=== PATIENT | male | born 1970 | race Caucasian/White ===

== ENCOUNTER 2016-07-18 12:45 | Day surgery (SDC) | payer OTHER ==
[2016-07-13 15:38] VITALS: BMI 33.2
[~2016-07-18 12:45] MED LIST: LACTATED RINGERS 1,000 ML IV SCH; Pre Op ABX Message 1 EACH MISC MISCELLANE ONE
[2016-07-18 13:11] VITALS: TEMP 97.7
[2016-07-18] MEDS ORDERED: LIDOCAINE 1% 20 ML VIAL (10MG/ML) FOR IV START INTRADERMA ONE (13:24)
[2016-07-18 13:27] LABS: Glucose,Whole Blood 124 mg/dL (75-99)
[2016-07-18] MEDS ORDERED: LIDOCAINE 2% SYG (PF) 100 MG/5 ML ONE (14:29)
[2016-07-18] MEDS ORDERED: KETAMINE 10 MG/ML 20 ML VIAL ONE (14:29)
[2016-07-18] MEDS ORDERED: GLYCOPYRROLATE 0.2 MG/ML 2 ML VIAL ONE (14:29)
[2016-07-18] MEDS ORDERED: fentaNYL (PF) 50 MCG/ML 2 ML AMP ONE (14:29)
[2016-07-18] MEDS ORDERED: PROPOFOL 10 MG/ML 20 ML VIAL IV ONE (14:29)
[2016-07-18] MEDS ORDERED: MIDAZOLAM 2 MG/2 ML VIAL ONE (14:29)
[2016-07-18] MEDS ORDERED: LIDOCAINE 2% INJ 20 MG/ML INTRATRACH ONE (15:10)
[2016-07-18] MEDS ORDERED: LACTATED RINGERS 1,000 ML IV ONE (15:14)
--- NOTE | 2016-07-18 15:19 | P.PCN ---
Date of Procedure: 07/18/16 Preoperative Diagnosis: Mediastinal/right hilar mass Postoperative Diagnosis: Same Procedure(s) Performed: Flexible bronchoscopy, transbronchial needle aspirate Anesthesia: MAC Surgeon: Terri Mckeon Institutional Nutrition Consultant #1: Qing Meneses Pathology: other Condition: stable Disposition: same day Operative Findings: This procedure was done under conscious sedation with an ascitic it is being administered by LOGISTICS ENGINEER the bedside. The patient was premedicated with a combination of Versed, ketamine and Diprivan. The patient has obvious features of obstructive sleep apnea and he had evidence of upper airway obstruction and prolonged apneas resulting introduction desaturations. The airway manipulation was done. The chin and the jaw was lifted to secure airway patency. Note that the patient continued to have frequent oxygen desaturations throughout the procedure and he gave me limited amount of time to introduce my bronchoscope and the airway inspection and transbronchial needle aspirate. Nevertheless, we did pulse ox of above 88%. Part of the procedure. No prolonged desaturations were encountered. After achieving adequate oxygenation, the flexible bronchoscope was inserted to the left nostril doesn't list updated. Significant crowding of the posterior oropharynx and subsequently the bronchoscope was moved to the pharynx and larynx and adipose tissue was cc circumferentially going through the upper airway causing dynamic obstruction and apneas. Epiglottis was visualized. The rest of the upper airway structures including the vallecula arytenoids and trouble. Cords and all of them were within normal limits. A total of 2 mL of 1 % lidocaine was applied to the vocal cords and following that the bronchoscope was advanced to the upper trachea. A quick airway inspection was done and the visualized airways include bilateral mainstem bronchi, right upper lobe bronchus , bronchus intermedius, right middle lobe bronchus, right lower lobe bronchus, left upper lobe bronchus, left lower lobe bronchus,segments and subsegments. All of these airway structures were patent although some narrowing of the upper lobe site is clean. In fact the right upper lobe was bifurcating and a taken in the posterior segment was originating from the same airway. Anatomically, there was a component of extrinsic compression causing significant narrowing of the airways in the right upper lobe and airway caliber has been reduced by about 50%. The bronchus intermedius was patent. The right middle lobe was visualized. The vent segments of the right lower lobe was also visualized although there was some extrinsic compression in addition. No endobronchial tumor was seen. No active bleeding. No retained blood within the patient's airway. At this point, the bronchoscope was moved to the distal trachea and using a 21-gauge cytology needle chest loculated aspirate of the right paratracheal lymph node was obtained and the total of 4 passes was taken. The adequacy of the samples was confirmed by pathology at the bedside. Total amount of bleeding was less than 5-10 ML's. Bronchoscope was removed and the patient was transferred recovery in stable condition. The patient will be discharged once cleared by anesthesia.
[2016-07-18 16:18] VITALS: BP 120/85; RESP 18
[2016-07-18 16:37] VITALS: PULSE 85
[2016-07-19] MEDS ORDERED: LACTATED RINGERS 1,000 ML IV ONE (05:00)
[2016-07-19] MEDS ORDERED: ALBUTEROL NEB (CONC) 2.5 MG/0.5 ML INHALATION ONE (05:00)
[2016-07-19] MEDS ORDERED: LIDOCAINE 2% (PF) 20 MG/ML 10ML INHALATION ONE (05:00)
--- NOTE | 2016-07-20 12:47 | CDI ---
There is conflicting documentation regarding the sedation used. It appears that General Anesthesia/Unconscious Sedation was used per the Anesthesia Record, but your Procedure Note states "conscious sedation." This is conflicting because these are completely different forms of sedation. If the patient did receive GA/ US, not Conscious Sedation, then please ammend your procedure note to state the correct form of anesthesia used. This is necessary for correct coding and billing. If you don't understand what is needed from you, please contact my manager ambulatory, Stephany Jewell at [phone]. Thank you. LE Lopez
--- NOTE | 2016-08-06 13:06 | CDI ---
There is conflicting documentation regarding the sedation used. It appears that General Anesthesia/Unconscious Sedation was used per the Anesthesia Record, but your Procedure Note states "conscious sedation." This is conflicting because these are completely different forms of sedation. If the patient did receive GA/ US, not Conscious Sedation, then please amend your procedure note to state the correct form of anesthesia used. This is necessary for correct coding and billing. If you don't understand what is needed from you, please contact my manager payroll, Stephany Jewell at [phone]. Thank you. LE Lopez
--- NOTE | 2016-08-17 14:36 | CDI ---
There is conflicting documentation regarding the sedation used. It appears that General Anesthesia/Unconscious Sedation was used per the Anesthesia Record, but your Procedure Note states "conscious sedation." This is conflicting because these are completely different forms of sedation. If the patient did receive GA/ US, not Conscious Sedation, then please ammend your procedure note to state the correct form of anesthesia used. This is necessary for correct coding and billing. If you don't understand what is needed from you, please contact my hospice manager, Stephany Jewell at [phone]. Thank you. ALLY BALLARD
--- NOTE | 2016-09-25 16:09 | P.PN ---
Progress Note - Text The procedure was done under sedation as documented by anesthesia staff. Disregard my conscious sedation comment in the previous procedure note.
== END 2016-07-18 17:20 | disposition home or self-care (01) ==
LOC: ORWHC2ENDO 12:45
PROVIDERS: ATTEND Internal Medicine Critical Care Medicine
DX: C34.90 Malignant neoplasm of unspecified part of unspecified bronchus or lung (principal); R91.8 Other nonspecific abnormal finding of lung field; R04.2 Hemoptysis; J44.9 Chronic obstructive pulmonary disease, unspecified; F17.200 Nicotine dependence, unspecified, uncomplicated; F32.9 Major depressive disorder, single episode, unspecified; I10 Essential (primary) hypertension; E11.9 Type 2 diabetes mellitus without complications; Z79.84 Long term (current) use of oral hypoglycemic drugs; Z79.891 Long term (current) use of opiate analgesic; Z79.899 Other long term (current) drug therapy
CPT/HCPCS: 88305; 88173; 88342; 88341; 31629; J2001 ×3; J2250; J3010; J2704

== ENCOUNTER → 2016-08-02 | Outpatient (CLI) | payer OTHER ==
--- NOTE | 2016-08-02 07:42 | MR ---
PRE AND POSTCONTRAST ENHANCED MRI OF THE BRAIN: CLINICAL HISTORY: Headaches, Hx of small cell lung ca CONTRAST: 20 ML Multihance COMPARISON: None Multiplanar and multispin-echo imaging of the brain was performed both before and after the administr ation of contrast. The ventricles, basal cisterns and sulci overlying the cerebral convexities are within normal limits. There is no evidence for midline shift or mass effect. Acute intracranial hemorrhage or extra-axial collection is not evident. There are no abnormal areas of increased or decreased signal intensity within the brain parenchyma. Following contrast administration, there is no evidence for pathologic enhancement or enhancing mass. There is moderate opacification of the right maxillary sinus with mild opacification of the left maxi llary sinus. There is mucosal thickening of the ethmoid air cells and frontal sinuses. Sphenoid sinus is well aerated as are the mastoid air cells. IMPRESSION: 1. No intracranial abnormality is identified at this time. 2. Moderate chronic sinusitis.
== END | disposition home or self-care (01) ==
LOC: RADMRIMAIN 05:54
PROVIDERS: ATTEND Internal Medicine Hematology & Oncology
DX: C34.90 Malignant neoplasm of unspecified part of unspecified bronchus or lung (principal); R51 Headache; J32.9 Chronic sinusitis, unspecified
CPT/HCPCS: 70553; A9577

== ENCOUNTER → 2016-08-04 | Outpatient (CLI) | payer OTHER ==
--- NOTE | 2016-08-05 10:03 | PE ---
EXAMINATION TYPE: PET CT fusion skull to thigh DATE OF EXAM: 08/04/2016 6:30 PM COMPARISON: Chest x-ray 07/26/2016 Prior PET/CT: None HISTORY: Small cell lung cancer TECHNIQUE: Following the intravenous administration of 12.6 mCi of F-18 FDG, whole body images are p erformed from the skull base to the midthigh. Images are reviewed on the computer in the coronal, ax ial, and sagittal planes. Reconstructed rotating images are created on independent workstation and r eviewed on the computer. A localization and attenuation correction CT is performed in conjunction w ith the PET scan. DLP: 438.54 mGycm SCAN: Initial Blood glucose: 105 mg/dL Average Mediastinum SUV: 1.6 Average Liver SUV: 2.6 FINDINGS: NECK: No abnormal uptake THORAX: There is a small lymph node with intense uptake of 5.4 suspicious for metastatic lesion withi n the pretracheal lymph node. Additional lymph node above the fuentes in the pretracheal space has inc reased uptake of 4.9 compatible with neoplasm. The mass within the right suprahilar region has intens e uptake of 12.3 compatible with neoplasm. Subcarinal lymph node has increased uptake measuring 4.5 c ompatible with neoplasm. ABDOMEN: No abnormal uptake. Contrast is throughout the colon which can be normal. There is uptake wi thin the bilateral renal collecting system. PELVIS: No abnormal uptake OSSEOUS STRUCTURES: No abnormal uptake LOCALIZATION CT: There is opacification of the right maxillary sinus. Enlarged mediastinal lymph node s corresponding to the abnormal areas of uptake are identified. The adrenal glands appear normal. Nor mal appendix is present. Bilateral hip prostheses are present. COMPARISON: Lung mass and lymphadenopathy is better visualized on the localization CT of the chest x- ray. IMPRESSION: 1. Abnormal uptake within the right suprahilar mass with abnormal uptake within the adjacent pretrach eal subcarinal nodes compatible with patient's reported primary lung neoplasm or metastatic lesions.
== END | disposition home or self-care (01) ==
LOC: RADPETMAIN 13:31
PROVIDERS: ATTEND Internal Medicine Hematology & Oncology
DX: C34.90 Malignant neoplasm of unspecified part of unspecified bronchus or lung (principal)
CPT/HCPCS: 78815; A9552

== ENCOUNTER → 2016-09-05 | Outpatient (CLI) | payer OTHER | END | disposition home or self-care (01) | LOC: LABWHC1 15:10 | PROVIDERS: ATTEND Internal Medicine Cardiovascular Disease | DX: R00.1 Bradycardia, unspecified (principal) | CPT/HCPCS: 36415; 84439; 84443 ==

== ENCOUNTER 2016-10-25 14:43 | Observation (INO) | payer OTHER ==
--- NOTE | 2016-10-25 16:58 | P.PN ---
Subjective Principal diagnosis: Chemo induced anemia, neutropenia, weakness Mr. Gonzalez is a very pleasant pt of Dr. Clifford who was sent as a direct admit from our office. He was seen today for routine chemo follow up, he was found to be severely anemia with Hgb 6.5, ANC 341. Pt c/o cough, severe indigestion and diarrhea with poor oral intake for about 3 days, he was tachycardic, BP low normal, normal temp. We tried fluid resuscitation but pt continued to decline, feeling weak and SOB. He was direct admitted, orders written and pt taken over to Oncology unit. spoke with Dr. Mosher and he has accepted as attending. Pt will be seen in AM on consult by Oncology. Malignancy History: Pt was initially seen as a referral from pt PCP Dr. Harrington in June of 2015 for elevated Hgb and ferritin. Work up for myeloproliferative conditions was negative and no other underlying condition as to cause could be identified so polycythemia secondary to smoking was felt to be cuase and pt was to be seen PRN. In July 2016 pt was referred back but now for diagnosis of small cell lung cancer. He was admitted to [facility] with c/ o SOB, CT chest revealed large right hilar mass, multiple bilateral mediastinal lymph nodes and sub-pleural nodules, bronchoscopy with Dr. Mckeon done on revealed small cell lung cancer, MRI brain negative in July and staging PET revealed limited stage disease, pt was started on concurrent chemo and radiation and had done well to this treatment. He has not received GCSF. Objective - Vital Signs Vital signs: Vital Signs Temp 98.1 F 10/25/16 16:35 Pulse 109 H 10/25/16 16:35 Resp 16 10/25/16 16:35 BP 115/75 10/25/16 16:35 Pulse Ox 97 10/25/16 16:35 - Exam Exam was performed in office. Pt was pale, visibly weak and uncomfortable, oral mucosa dry, BBS scattered crackles, tachycardia, abd soft, non-tender, no rebound, mild selling of BLE. Assessment and Plan (1) Dehydration Narrative/Plan: IV fluids ordered Status: Acute (2) Antineoplastic chemotherapy induced pancytopenia Narrative/Plan: STAT 1 unit PRBCs, GCSF ordered, no platelets needed at this time. CBC daily Status: Acute (3) Weakness generalized Narrative/Plan: Secondary to pancytopenia and dehydration, monitor, PT once pt feeling better Status: Acute (4) Small cell lung carcinoma Narrative/Plan: Pt is currently on salvage therapy with cisplatin and etoposide, s/p 4/6 cycles with radiation. Status: Acute Plan: Consult XRT to follow
[2016-10-25] MEDS ORDERED: HYDROcodone/APAP 10-325MG 1 EACH TAB PO PRN (17:07)
[2016-10-25] MEDS ORDERED: ACETAMINOPHEN TAB 325 MG TAB PO PRN (17:07)
[2016-10-25] MEDS ORDERED: ALBUTEROL NEBULIZED 2.5 MG/3 ML INHALATION PRN (17:07)
--- NOTE | 2016-10-25 17:20 | P.HPIM ---
History of Present Illness Patient is a pleasant 46-year-old gentleman with history of lung cancer that was diagnosed recently metastatic disease. Was started on cis-[place] and atopocide. Patient was seen in oncology clinic and was sent in the hospital because of extremely low hemoglobin and blood and for blood transfusion. Patient absolute neutrophil count is 341 patient denied any fever. Patient was complained of cough with whitish sputum production patient was having diarrhea about 2-3 episodes a day. Probably related to mucositis from chemotherapy and C. diff testing be obtained. We'll also get any urea blood cultures. As patient is afebrile probably will not need any antibiotics at this time. Although patient was tachycardic. Review of Systems REVIEW OF SYSTEMS: CONSTITUTIONAL: No fever, no malaise, no fatigue. HEENT: No recent visual problems or hearing problems. Denied any sore throat. CARDIOVASCULAR: No chest pain, orthopnea, PND, no palpitations, no syncope. PULMONARY: No shortness of breath, , no hemoptysis. GASTROINTESTINAL: No diarrhea, no nausea, no vomiting, no abdominal pain. Normoactive bowel sounds. NEUROLOGICAL: No headaches, no weakness, no numbness. HEMATOLOGICAL: Denies any bleeding or petechiae. GENITOURINARY: Denies any burning micturition, frequency, or urgency. MUSCULOSKELETAL/RHEUMATOLOGICAL: Denies any joint pain, swelling, or any muscle pain. ENDOCRINE: Denies any polyuria or polydipsia. The rest of the 14-point review of systems is negative. Past Medical History Past Medical History: Cancer, Diabetes Mellitus, GERD/Reflux, Hypertension, Osteoarthritis (OA), Pneumonia Additional Past Medical History / Comment(s): mass rt side of chest - positive for cancer. completed 6 weeks of radiation tx, next chemo due next week. pt stated "when he eats it feels like food gets stuck going down". History of Any Multi-Drug Resistant Organisms: None Reported Past Surgical History: Joint Replacement Additional Past Surgical History / Comment(s): emily. hip replacement,"power port rt upper chest", bronchosocopy w/bx Past Anesthesia/Blood Transfusion Reactions: Postoperative Nausea & Vomiting ( PONV) Smoking Status: Current every day smoker - Past Family History Mother Family Medical History: Cancer Additional Family Medical History / Comment(s): colon cancer Father Family Medical History: No Reported History Medications and Allergies Home Medications Medication Instructions Recorded Confirmed Type Acetaminophen [Tylenol] 650 mg PO BID PRN 07/13/16 10/25/16 History Albuterol Inhaler [Ventolin Hfa 1 - 2 puff INHALATION RT-Q6H PRN 07/13/16 History Inhaler] HYDROcodone/APAP 10-325MG [[place] 1 tab PO Q4-6H PRN 07/13/16 10/25/16 History 10-325] Lisinopril [Prinivil] 5 mg PO DAILY 07/13/16 10/25/16 History hydrOXYzine PAMOATE 25 mg PO Q4-6H PRN 07/13/16 10/25/16 History metFORMIN HCL [Glucophage] 500 mg PO BID 07/13/16 10/25/16 History Lidocaine Viscous 2% [Xylocaine 10 ml MUCOUS MEM QID 10/25/16 10/25/16 History Viscous] Allergies Allergy/AdvReac Type Severity Reaction Status Date / Time mushroom Allergy Nausea & Verified 07/18/16 13:11 Vomiting Physical Exam Vitals: Vital Signs Temp Pulse Resp BP Pulse Ox 10/25/16 16:35 98.1 F 109 H 16 115/75 97 PHYSICAL EXAMINATION: GENERAL: The patient is alert and oriented x3, not in any acute distress. Well developed, well nourished. HEENT: Pupils are round and equally reacting to light. EOMI. No scleral icterus. conjunctival pallor present. Normocephalic, atraumatic. No pharyngeal erythema. No thyromegaly. CARDIOVASCULAR: S1 and S2 present. No murmurs, rubs, or gallops. PULMONARY: Chest is clear to auscultation, no wheezing or crackles. ABDOMEN: Soft, nontender, nondistended, normoactive bowel sounds. No palpable organomegaly. MUSCULOSKELETAL: No joint swelling or deformity. EXTREMITIES: No cyanosis, clubbing, or pedal edema. NEUROLOGICAL: Gross neurological examination did not reveal any focal deficits. SKIN: No rashes. Assessment and Plan Plan: #1 chemo therapy induced anemia: Since his patient's hemoglobin is less than 7 patient will be transfused 1 unit of blood. 2 severe neutropenia: Chemotherapy induced. Patient doesn't have any fever may not need any antibiotics but will obtain C. diff testing, chest x-ray, UA urinalysis, urine cultures, but cultures. #3 diarrhea probably from mucositis from chemotherapy. 4 type 2 diabetes mellitus: Will use sliding scale insulin for now. 5 hypertension hold off lisinopril because of diarrhea until we have more labs. 6. Nicotine abuse: Counseling was provided #7 small cell lung cancer. Completed for cycle of chemotherapy last week.
[2016-10-25] MEDS ORDERED: INSULIN LISPRO (humaLOG) 300 UNIT/3 ML VIAL SQ SCH (17:30)
[2016-10-25] MEDS: LIDOCAINE VISCOUS 2% 15 ML CUP MUCOUS MEM SCH ×2 (17:56→22:37)
[2016-10-25] MEDS: SODIUM CHLORIDE 0.9% 1,000 ML IV SCH (17:57)
[2016-10-25] MEDS ORDERED: FILGRASTIM-SNDZ 480 MCG/0.8 ML SYRINGE SQ SCH (18:00)
--- NOTE | 2016-10-25 18:08 | XR ---
EXAMINATION TYPE: XR chest 2V DATE OF EXAM: 10/25/2016 COMPARISON: July 26, 2016 chest radiographs HISTORY: Cough TECHNIQUE: Frontal and lateral views of the chest are obtained. FINDINGS: The ill-defined added opacity within the right upper lung zone persists, though less eviden t than the prior study. The right hilar fullness is also redemonstrated, somewhat less perceptible. Remainder of the lung parenchyma clear and well expanded bilaterally. The pleural spaces are negative . Right IJ catheter has been placed since the prior study; it is looped in its cephalad aspect in the s upraclavicular fossa, and the tip of the Port-A-Cath projects over the proximal superior vena cava. The cardiomediastinal mediastinal silhouette is unremarkable, as are the bones and soft tissues. IMPRESSION: 1. RIGHT UPPER LOBE/RIGHT HILAR FINDINGS REDEMONSTRATED. 2. INTERVAL RIGHT IJ PORT CATHETER PLACEMENT DESCRIBED.
[2016-10-25 18:11] LABS: Glucose,Whole Blood 113 mg/dL (75-99)
[2016-10-25] MEDS ORDERED: MAG HYDROX/AL HYDROX/SIMETH 30 ML CUP PO PRN (18:15)
[2016-10-25] MEDS ORDERED: ONDANSETRON 4 MG TAB PO PRN (18:15)
[2016-10-25 18:56] LABS: ALT 24 U/L (21-72); AST 11 U/L (17-59); Alkaline Phosphatase 118 U/L (38-126); Anion Gap 9 mmol/L; Blood Urea Nitrogen 11 mg/dL (9-20); Calcium 9.1 mg/dL (8.4-10.2); Carbon Dioxide 24 mmol/L (22-30); Chloride 107 mmol/L (98-107); Glucose 103 mg/dL (74-99); Magnesium 1.7 mg/dL (1.6-2.3); Non-African American GFR(MDRD) >60 (>60 ml/min/1.73 sqM); Phosphorous 2.6 mg/dL (2.5-4.5); Sodium 140 mmol/L (137-145); Total Bilirubin 0.2 mg/dL (0.2-1.3); Total Protein 5.7 g/dL (6.3-8.2)
[2016-10-25 19:16] LABS: Anisocytosis Slight; CH 31.7; CHCM 35.4; HDW 3.57; Immature Gran Flag Slight; MCH 33.1 pg (25.0-35.0); MCHC 36.9 g/dL (31.0-37.0); MCV 89.8 fL (80.0-100.0); Mean Platelet Volume 7.7; Poikilocytosis Slight; RBC 1.64 m/uL (4.30-5.90); RDW 18.9 % (11.5-15.5); WBC (Perox) 0.76
[2016-10-25 19:32] LABS: HCT 14.7 % (39.0-53.0); HGB 5.4 gm/dL (13.0-17.5); WBC 0.8 k/uL (3.8-10.6)
[2016-10-25] MEDS: BENZOCAINE/MENTHOL LOZENG 1 EACH LOZENGE MUCOUS MEM PRN (19:32)
[2016-10-25 19:57] LABS: Add Differential Manual Differential
[2016-10-25 19:59] LABS: Polychromasia Present
[2016-10-25 20:00] LABS: Manual Review Performed
[2016-10-25 20:22] LABS: Appearance,Urine Clear (Clear); Bilirubin,Urine Negative (Negative); Glucose,Urine (UA) Trace (Negative); Ketones,Urine Negative (Negative); Leukocyte Esterase,Urine Negative (Negative); Nitrite,Urine Negative (Negative); Protein,Urine Trace (Negative); Specific Gravity,Urine 1.015 (1.001-1.035); UA Billing (MACRO vs. MICRO) CHEM; Urobilinogen,Urine <2.0 mg/dL (<2.0)
[2016-10-25 20:23] LABS: Hemoglobin A1C 7.9 % (4.2-6.1)
[2016-10-25 20:55] LABS: Glucose,Whole Blood 173 mg/dL (75-99)
[2016-10-26] MEDS: CEFEPIME 2 GM in SODIUM CHLORIDE 0.9% 50 ML IVPB SCH ×2 (01:26→07:56)
[2016-10-26] MEDS: BENZOCAINE/MENTHOL LOZENG 1 EACH LOZENGE MUCOUS MEM PRN ×3 (01:47→15:14)
[2016-10-26 06:39] LABS: Anisocytosis Slight; Basophils % (A) 0 %; CH 31.5; CHCM 35.1; Eosinophils % (A) 1 %; HCT 22.3 % (39.0-53.0); HDW 3.41; Luc # (Auto) 0.12; Luc % (Auto) 4; Lymphocytes # (A) 0.3 k/uL (1.0-4.8); Lymphocytes % (A) 12 %; MCH 32.5 pg (25.0-35.0); MCHC 36.1 g/dL (31.0-37.0); MCV 90.1 fL (80.0-100.0); Mean Platelet Volume 7.7; Monocytes # (A) 0.3 k/uL (0-1.0); Monocytes % (A) 9 %; Neutrophils # (A) 2.1 k/uL (1.3-7.7); Neutrophils % (A) 74 %; Poikilocytosis Slight; RBC 2.48 m/uL (4.30-5.90); RDW 17.7 % (11.5-15.5); WBC 2.8 k/uL (3.8-10.6); WBC (Perox) 2.79
[2016-10-26 07:05] LABS: HGB 8.1 gm/dL (13.0-17.5)
[2016-10-26 07:14] LABS: Glucose,Whole Blood 102 mg/dL (75-99)
[2016-10-26 07:44] VITALS: BP 134/84; PULSE 107; RESP 16; TEMP 98.6
[2016-10-26] MEDS: LIDOCAINE VISCOUS 2% 15 ML CUP MUCOUS MEM SCH ×2 (07:56→12:21)
[2016-10-26] MEDS: SODIUM CHLORIDE 0.9% 1,000 ML IV SCH ×3 (08:50→12:41)
[2016-10-26] MEDS ORDERED: SODIUM CHLORIDE 0.9% 1,000 ML IV ONE (10:27)
[2016-10-26 11:12] VITALS: BMI 30.1
[2016-10-26 12:05] LABS: Glucose,Whole Blood 107 mg/dL (75-99)
--- NOTE | 2016-10-26 17:33 | P.DS ---
Providers Date of admission: 10/25/16 15:02 Expected date of discharge: 10/26/16 Attending physician: Lexus Mosher Consults: Dr. Sheldon, Oncology Primary care physician: Stated None Dr. Edmond Hospital Course: Final Diagnoses: #1 chemo therapy induced anemia: Since his patient's hemoglobin is less than 7 patient will be transfused 1 unit of blood. 2 severe neutropenia without fevers: Chemotherapy induced. #3 diarrhea probably from mucositis from chemotherapy. 4 type 2 diabetes mellitus 5 hypertension hold off lisinopril because of diarrhea 6. Nicotine abuse #7 small cell lung cancer. Completed for cycle of chemotherapy last week. Hospital course: Patient is a pleasant 46-year-old gentleman with history of lung cancer that was diagnosed recently metastatic disease. Was started on cis- [employer] and etopocide with radiation. Patient was seen in oncology clinic and was sent in the hospital because of extremely low hemoglobin,diarrhea .Tested negative for C. diff.Received blood transfusion and xarxio. Significant clinical improvement. Cleared by oncology for discharge. Patient is being discharged home in a stable condition with guarded prognosis. Microbiology 10/25/16 19:35 Stool Stool for WBCs - Final 10/25/16 19:35 Urine,Clean Catch Urine Culture - Preliminary The impression and plan of care has been dictated as directed as a scribe. : I performed a H&P examination of this patient and discussed the same with the dictator. I agree with the dictator's note. Any additional findings/opinions/ etc. will be noted. Patient Condition at Discharge: Stable Plan - Discharge Summary New Discharge Prescriptions: New INSULIN LISPRO (HumaLOG) [humaLOG] 0 unit SQ ACHS #1 vial Continue HYDROcodone/APAP 10-325MG [[place] 10-325] 1 tab PO Q4-6H PRN PRN Reason: Pain Albuterol Inhaler [Ventolin Hfa Inhaler] 1 - 2 puff INHALATION RT-Q6H PRN PRN Reason: Dyspnea Acetaminophen [Tylenol] 650 mg PO BID PRN PRN Reason: Pain Lidocaine Viscous 2% [Xylocaine Viscous] 10 ml MUCOUS MEM QID Ondansetron [Zofran] 4 mg PO Q4HR PRN PRN Reason: Nausea Mag Hydrox/Al Hydrox/Simeth [Maalox] 30 ml PO DAILY PRN PRN Reason: Constipation Discontinued hydrOXYzine PAMOATE 25 mg PO Q4-6H PRN PRN Reason: Pain Lisinopril [Prinivil] 5 mg PO DAILY Discharge Medication List Acetaminophen [Tylenol] 650 mg PO BID PRN 07/13/16 [History] Albuterol Inhaler [Ventolin Hfa Inhaler] 1 - 2 puff INHALATION RT-Q6H PRN [History] HYDROcodone/APAP 10-325MG [[place] 10-325] 1 tab PO Q4-6H PRN 07/13/16 [History] Lidocaine Viscous 2% [Xylocaine Viscous] 10 ml MUCOUS MEM QID 10/25/16 [History] Mag Hydrox/Al Hydrox/Simeth [Maalox] 30 ml PO DAILY PRN 10/25/16 [History] Ondansetron [Zofran] 4 mg PO Q4HR PRN 10/25/16 [History] INSULIN LISPRO (HumaLOG) [humaLOG] 0 unit SQ ACHS #1 vial 10/26/16 [Rx] Follow up Appointment(s)/Referral(s): Dr. Nichelle PCP [Other] - 3 Days (pt to call for appointment ) [facility], [NON-STAFF] - 1 Week Juan Clifford MD [STAFF PHYSICIAN] - 11/01/16 3:45 pm Ambulatory/Diagnostic Orders: Complete Blood Count w/diff [LAB.AMB] Time Frame: 3 Days, Location: Determined By Patient Patient Instructions/Handouts: Insulin Lispro (By injection), How to Stop Smoking (DC), Neutropenia (DC), Anemia (DC) Activity/Diet/Wound Care/Special Instructions: Hold Metformin, SS ordered. antibx. as per Oncology no smoking Discharge Disposition: HOME SELF-CARE
== END 2016-10-26 16:12 | disposition home health service (06) ==
LOC: 5ONC 15:02 → INTOOBSV 15:02
PROVIDERS: ADMIT Internal Medicine; ATTEND Internal Medicine
PROC: 30240N1 Transfusion of Nonautologous Red Blood Cells into Central Vein, Open Approach (ICD-10-PCS; principal; 2016-10-25)
DX: D61.810 Antineoplastic chemotherapy induced pancytopenia (principal); R19.7 Diarrhea, unspecified; E11.9 Type 2 diabetes mellitus without complications; I10 Essential (primary) hypertension; C34.91 Malignant neoplasm of unspecified part of right bronchus or lung; K12.31 Oral mucositis (ulcerative) due to antineoplastic therapy; E86.0 Dehydration; T45.1X5A Adverse effect of antineoplastic and immunosuppressive drugs, initial encounter; F17.200 Nicotine dependence, unspecified, uncomplicated; K21.9 Gastro-esophageal reflux disease without esophagitis; M19.91 Primary osteoarthritis, unspecified site; Z96.643 Presence of artificial hip joint, bilateral; Z79.84 Long term (current) use of oral hypoglycemic drugs; Z79.899 Other long term (current) drug therapy; Z91.018 Allergy to other foods; Z92.3 Personal history of irradiation
CPT/HCPCS: 96365; 96366; 96372; 94640; 86900; 86901; 80053; 83036; 83735; 84100; 85025 ×2; 86850; 86920; 81003; 87040; 87324; 87086; 87329; 87328; 89055; 71020; G0379; G0378 ×2; P9016; J0692; J1642; Q5101

== ENCOUNTER → 2016-11-09 | Outpatient (CLI) | payer OTHER ==
[~2016-11-09] MED LIST changes: +ALTEPLASE 2 MG VIAL (CATHFLO) IV STA; -LACTATED RINGERS 1,000 ML IV SCH; -Pre Op ABX Message 1 EACH MISC MISCELLANE ONE
[2016-11-09 14:11] LABS: Blood Urea Nitrogen 25 mg/dL (9-20); Non-African American GFR(MDRD) >60 (>60 ml/min/1.73 sqM)
--- NOTE | 2016-11-09 15:10 | CT ---
EXAMINATION TYPE: CT chest w con DATE OF EXAM: 11/09/2016 COMPARISON: Previous study dated 06/15/2016. HISTORY: lung CA CT DLP: 492.9 mGycm Automated exposure control for dose reduction was used. CONTRAST: CT scan of the chest is performed with IV Contrast, patient injected with 100 mL of Omnipaque 300. FINDINGS: There has been a dramatic reduction in the size of the patient's right hilar mass which pre viously measured 6 cm and today measures 3.2 cm. It still encompasses the right upper lobe bronchus. There has been a reduction in the size of the right hilar lymph nodes as well as mediastinal lymph no elba. One pretracheal lymph node previously measured 1.7 cm now measures 1 cm. There is some inflammat ory change in the right lung which May BE secondary to postobstructive pneumonitis. There is a MediPort in place via a right internal jugular approach. Its tip is in the superior vena c ana. There is no pleural or pericardial fluid. The heart is not enlarged. Visualized portions of the upper abdomen are unremarkable. There is hypertrophic spondylosis within the spine. No bony destructive lesion is seen. IMPRESSION: 1. REDUCTION IN SIZE OF THE PATIENT'S RIGHT HILAR MASS AND MEDIASTINAL AND HILAR LYMPH NODES. 2. INFLAMMATORY CHANGES IN THE RIGHT UPPER LOBE MAY REPRESENT RESIDUAL POSTOBSTRUCTIVE PNEUMONITIS. 3. DEGENERATIVE CHANGES WITHIN THE SPINE.
== END | disposition home or self-care (01) ==
LOC: RADPROMAIN 13:05
PROVIDERS: ATTEND Internal Medicine Hematology & Oncology
DX: C34.91 Malignant neoplasm of unspecified part of right bronchus or lung (principal)
CPT/HCPCS: 82565; 84520; 96365; 71260; 36415; Q9967; J2997

== ENCOUNTER 2016-12-06 21:43 | Inpatient (IN) | payer OTHER ==
[2016-12-06] MEDS ORDERED: SODIUM CHLORIDE 0.9% 1,000 ML IV STA (21:59)
[2016-12-06] MEDS ORDERED: IPRATROPIUM-ALBUTEROL 3 ML NEB INHALATION STA (21:59)
--- NOTE | 2016-12-06 21:59 | ED ---
General Adult HPI - General Chief complaint: Shortness of Breath Stated complaint: r lung and back pain Time Seen by Provider: 12/06/16 21:48 Source: patient, EMS, RN notes reviewed, old records reviewed Mode of arrival: EMS Limitations: no limitations - History of Present Illness Initial comments: This is a 46-year-old out of the ER for evaluation. Patient is tearful muscle complaints today. Patient complaining of right-sided chest pain shortness of breath. Patient has recent diagnosis of lung CA. No prior history of heart disease. Denies fever but does complain of increased cough. His had increased cough for a few days now getting progressively worse, medication is not helping. Patient states the pain is located on the right side of his chest about 6 hours prior to arrival and then worsened with shortness of breath. - Related Data Home Medications Medication Instructions Recorded Confirmed Acetaminophen [Tylenol] 650 mg PO TID PRN 07/13/16 12/06/16 Albuterol Inhaler [Ventolin Hfa 1 - 2 puff INHALATION RT-QID PRN 07/13/16 Inhaler] HYDROcodone/APAP 10-325MG [[place] 1 tab PO Q4H PRN 07/13/16 12/06/16 10-325] Codeine Phosphate/Guaifenesin 5 ml PO Q4H PRN 12/06/16 12/06/16 [Virtussin AC Liquid] Pioglitazone [Actos] 15 mg PO QAM 12/06/16 12/06/16 Allergies Allergy/AdvReac Type Severity Reaction Status Date / Time mushroom AdvReac Nausea & Verified 12/06/16 22:32 Vomiting Anesthesia AdvReac Nausea & Uncoded 12/06/16 22:32 Vomiting Review of Systems ROS Statement: Those systems with pertinent positive or pertinent negative responses have been documented in the HPI. ROS Other: All systems not noted in ROS Statement are negative. Past Medical History Past Medical History: Cancer, Diabetes Mellitus, GERD/Reflux, Hypertension, Osteoarthritis (OA), Pneumonia Additional Past Medical History / Comment(s): mass rt side of chest - positive for cancer. completed 6 weeks of radiation tx, and chemo tx. pt stated "when he eats it feels like food gets stuck going down". History of Any Multi-Drug Resistant Organisms: None Reported Past Surgical History: Joint Replacement Additional Past Surgical History / Comment(s): emily. hip replacement,"power port rt upper chest", bronchosocopy w/bx Past Anesthesia/Blood Transfusion Reactions: Postoperative Nausea & Vomiting ( PONV) Past Psychological History: No Psychological Hx Reported Smoking Status: Current every day smoker Past Alcohol Use History: None Reported Past Drug Use History: None Reported - Past Family History Mother Family Medical History: Cancer Additional Family Medical History / Comment(s): colon cancer Father Family Medical History: No Reported History General Exam Limitations: no limitations General appearance: alert, in no apparent distress, anxious Head exam: Present: atraumatic, normocephalic, normal inspection Eye exam: Present: normal appearance, PERRL, EOMI. Absent: scleral icterus, conjunctival injection, periorbital swelling ENT exam: Present: normal exam, mucous membranes moist Neck exam: Present: normal inspection. Absent: tenderness, meningismus, lymphadenopathy Respiratory exam: Present: normal lung sounds bilaterally, wheezes, accessory muscle use. Absent: respiratory distress, rales, rhonchi, stridor Cardiovascular Exam: Present: normal rhythm, tachycardia, normal heart sounds. Absent: systolic murmur, diastolic murmur, rubs, gallop, clicks GI/Abdominal exam: Present: soft, normal bowel sounds. Absent: distended, tenderness, guarding, rebound, rigid Extremities exam: Present: normal inspection, full ROM, normal capillary refill. Absent: tenderness, pedal edema, joint swelling, calf tenderness Back exam: Present: normal inspection Neurological exam: Present: alert, oriented X3, CN II-XII intact Psychiatric exam: Present: normal affect, normal mood Skin exam: Present: warm, dry, intact, normal color. Absent: rash Course Vital Signs 12/06/16 12/06/16 12/06/16 21:48 22:02 22:33 Temperature 99.4 F Pulse Rate 113 H 105 H Respiratory 22 22 Rate Blood Pressure 125/80 O2 Sat by Pulse 96 Oximetry 12/06/16 12/06/16 22:46 23:17 Temperature Pulse Rate 106 H 110 H Respiratory 20 Rate Blood Pressure 135/85 O2 Sat by Pulse 98 Oximetry - Reevaluation(s) Reevaluation #1: 12/06/16 22:43 Mild improvement with breathing treatment, mild pain control with pain medication EKG Findings - EKG Comments: EKG Findings:: EKG shows normal sinus rhythm rate of 97, CO 160, QRS 84, QTC 434 Medical Decision Making - Medical Decision Making 46 LDR fevers or cough congestion shortness of breath. Chest x-ray likely for pneumonia, CT positive for pneumonia, patient will be admitted for IV antibiotics. She mentions cough suppression - Lab Data Result diagrams: 12/06/16 21:52 12/06/16 21:52 Lab Results 12/06/16 12/06/16 12/06/16 Range/Units 21:52 21:52 21:52 WBC 8.1 (3.8-10.6) k/uL RBC 2.65 L (4.30-5.90) m/uL Hgb 8.5 L (13.0-17.5) gm/dL Hct 25.7 L (39.0-53.0) % MCV 96.9 (80.0-100.0) fL MCH 32.2 (25.0-35.0) pg MCHC 33.2 (31.0-37.0) g/dL RDW 18.8 H (11.5-15.5) % Plt Count 60 L D (150-450) k/uL Neutrophils % 81 % Lymphocytes % 10 % Monocytes % 6 % Eosinophils % 1 % Basophils % 1 % Neutrophils # 6.6 (1.3-7.7) k/uL Lymphocytes # 0.8 L (1.0-4.8) k/uL Monocytes # 0.5 (0-1.0) k/uL Eosinophils # 0.1 (0-0.7) k/uL Basophils # 0.1 (0-0.2) k/uL Manual Slide Review Performed Anisocytosis Slight Anisocytosis (manual) Present Macrocytosis Slight Ovalocytes Present PT (9.0-12.0) sec INR (<1.2) APTT (22.0-30.0) sec D-Dimer (<0.60) mg/L FEU Sodium 137 (137-145) mmol/L Potassium 4.0 (3.5-5.1) mmol/L Chloride 104 (98-107) mmol/L Carbon Dioxide 23 (22-30) mmol/L Anion Gap 10 mmol/L BUN 15 (9-20) mg/dL Creatinine 0.89 (0.66-1.25) mg/dL Est GFR (MDRD) Af Amer >60 (>60 ml/min/1.73 sqM) Est GFR (MDRD) Non-Af >60 (>60 ml/min/1.73 sqM) Glucose 127 H (74-99) mg/dL Calcium 8.5 (8.4-10.2) mg/dL Magnesium 0.8 L* (1.6-2.3) mg/dL Total Bilirubin 0.2 (0.2-1.3) mg/dL AST 14 L (17-59) U/L ALT 20 L (21-72) U/L Alkaline Phosphatase 114 (38-126) U/L Total Creatine Kinase 47 L (55-170) U/L CK-MB (CK-2) <0.2 (0.0-2.4) ng/mL CK-MB (CK-2) Rel Index Troponin I <0.012 (0.000-0.034) ng/mL NT-Pro-B Natriuret Pep pg/mL Total Protein 6.2 L (6.3-8.2) g/dL Albumin 3.8 (3.5-5.0) g/dL 12/06/16 12/06/16 Range/Units 21:52 21:52 WBC (3.8-10.6) k/uL RBC (4.30-5.90) m/uL Hgb (13.0-17.5) gm/dL Hct (39.0-53.0) % MCV (80.0-100.0) fL MCH (25.0-35.0) pg MCHC (31.0-37.0) g/dL RDW (11.5-15.5) % Plt Count (150-450) k/uL Neutrophils % % Lymphocytes % % Monocytes % % Eosinophils % % Basophils % % Neutrophils # (1.3-7.7) k/uL Lymphocytes # (1.0-4.8) k/uL Monocytes # (0-1.0) k/uL Eosinophils # (0-0.7) k/uL Basophils # (0-0.2) k/uL Manual Slide Review Anisocytosis Anisocytosis (manual) Macrocytosis Ovalocytes PT 10.3 (9.0-12.0) sec INR 1.0 (<1.2) APTT 23.2 (22.0-30.0) sec D-Dimer 1.73 H (<0.60) mg/L FEU Sodium (137-145) mmol/L Potassium (3.5-5.1) mmol/L Chloride (98-107) mmol/L Carbon Dioxide (22-30) mmol/L Anion Gap mmol/L BUN (9-20) mg/dL Creatinine (0.66-1.25) mg/dL Est GFR (MDRD) Af Amer (>60 ml/min/1.73 sqM) Est GFR (MDRD) Non-Af (>60 ml/min/1.73 sqM) Glucose (74-99) mg/dL Calcium (8.4-10.2) mg/dL Magnesium (1.6-2.3) mg/dL Total Bilirubin (0.2-1.3) mg/dL AST (17-59) U/L ALT (21-72) U/L Alkaline Phosphatase (38-126) U/L Total Creatine Kinase (55-170) U/L CK-MB (CK-2) (0.0-2.4) ng/mL CK-MB (CK-2) Rel Index Troponin I (0.000-0.034) ng/mL NT-Pro-B Natriuret Pep 376 pg/mL Total Protein (6.3-8.2) g/dL Albumin (3.5-5.0) g/dL - Radiology Data Radiology results: report reviewed (Chest x-ray likely for pneumonia, CT chest negative for PE positive for pneumonia), image reviewed Disposition Clinical Impression: Small cell lung carcinoma, Acute exacerbation of chronic obstructive airways disease, Community acquired pneumonia Disposition: ADMITTED IP TO THIS HOSP Condition: Fair Referrals: Katelyn Harrington MD [Primary Care Provider] - 1-2 days
[2016-12-06] MEDS ORDERED: MORPHINE SULFATE 4 MG/ML SYRINGE IVP STA (22:00)
[2016-12-06 22:08] LABS: Anisocytosis Slight; Basophils # (A) 0.1 k/uL (0-0.2); Basophils % (A) 1 %; CHCM 34.1; Eosinophils # (A) 0.1 k/uL (0-0.7); Eosinophils % (A) 1 %; HCT 25.7 % (39.0-53.0); HDW 2.87; HGB 8.5 gm/dL (13.0-17.5); Luc # (Auto) 0.13; Luc % (Auto) 2; Lymphocytes # (A) 0.8 k/uL (1.0-4.8); Lymphocytes % (A) 10 %; MCH 32.2 pg (25.0-35.0); MCHC 33.2 g/dL (31.0-37.0); MCV 96.9 fL (80.0-100.0); Macrocytosis Slight; Monocytes # (A) 0.5 k/uL (0-1.0); Monocytes % (A) 6 %; Neutrophils # (A) 6.6 k/uL (1.3-7.7); Neutrophils % (A) 81 %; RBC 2.65 m/uL (4.30-5.90); RDW 18.8 % (11.5-15.5); WBC 8.1 k/uL (3.8-10.6); WBC (Perox) 7.98
[2016-12-06 22:19] LABS: ALT 20 U/L (21-72); AST 14 U/L (17-59); Alkaline Phosphatase 114 U/L (38-126); Anion Gap 10 mmol/L; Blood Urea Nitrogen 15 mg/dL (9-20); Calcium 8.5 mg/dL (8.4-10.2); Carbon Dioxide 23 mmol/L (22-30); Chloride 104 mmol/L (98-107); Glucose 127 mg/dL (74-99); Non-African American GFR(MDRD) >60 (>60 ml/min/1.73 sqM); Sodium 137 mmol/L (137-145); Total Bilirubin 0.2 mg/dL (0.2-1.3); Total Protein 6.2 g/dL (6.3-8.2)
[2016-12-06 22:23] LABS: Partial Thromboplastin Time 23.2 sec (22.0-30.0); Prothrombin Time 10.3 sec (9.0-12.0)
[2016-12-06 22:26] LABS: Magnesium 0.8 mg/dL (1.6-2.3)
[2016-12-06 22:28] LABS: Creatine Kinase 47 U/L (55-170)
[2016-12-06 22:29] LABS: Manual Review Performed; Ovalocytes Present
--- NOTE | 2016-12-06 22:29 | XR ---
EXAM: XR Chest, 2 Views CLINICAL HISTORY: Reason: difficulty breathing TECHNIQUE: Frontal and lateral views of the chest. COMPARISON: Chest x-ray 10/25/16 FINDINGS: Lungs: Unchanged right upper lung hazy opacity. Pleural space: Unremarkable. No pneumothorax. Heart: Unremarkable. No cardiomegaly. Mediastinum: Unremarkable. Bones/joints: Unremarkable. Tubes, lines and devices: Right-sided Port-A-Cath is in unchanged position. IMPRESSION: Unchanged right upper lung hazy opacity. Correlate for pneumonia. Comparison with any prior cross-sectional imaging would be useful if available.
[2016-12-06] MEDS ORDERED: RX INFO: IV CONTRAST WAS GIVEN 1 EACH MISC MISCELLANE PRN (22:36)
[2016-12-06] MEDS ORDERED: HYDROmorphone 1 MG/ML 1 ML SYRINGE IVP STA (22:40)
[2016-12-06 22:42] LABS: Creatine Kinase MB <0.2 ng/mL (0.0-2.4); Troponin I <0.012 ng/mL (0.000-0.034)
[2016-12-06] MEDS: MAGNESIUM SULFATE-D5W PMX 1 GM in DEXTROSE/WATER 1 100ML.BAG IVPB SCH (23:05)
--- NOTE | 2016-12-06 23:37 | CT ---
EXAM: CT Angiography Chest With Intravenous Contrast CLINICAL HISTORY: Reason: Pain TECHNIQUE: Axial computed tomographic angiography images of the chest with intravenous contrast using pulmonary embolism protocol. Coronal and sagittal reformats were obtained. CTDI is 11.20 mGy and DLP is 466.50 mGy-cm. This CT exam was performed using one or more of the following dose reduction techniques: automated exposure control, adjustment of the mA and/or kV according to patient size, and/or use of iterative reconstruction technique. MIP reconstructed images were created and reviewed. COMPARISON: CT chest, 11/09/16 and chest x-ray 12/06/16 FINDINGS: Pulmonary arteries: Unremarkable. No pulmonary embolism detected. Aorta: No acute findings. No thoracic aortic aneurysm. Lungs: Increased patchy opacities in the right lung, predominantly in the right upper lobe, suspicious for infectious or inflammatory process. Associated bronchial wall thickening, greatest in the right upper lobe. Pleural space: New trace right pleural effusion. No pneumothorax. Heart: Unremarkable. No cardiomegaly. No significant pericardial effusion. Bones/joints: No acute fracture. Lymph nodes: Right hilar soft tissue density, mass versus enlarged lymph node, has slightly decreased, measuring 2.6 cm on series 4, image 75 (previously 3.2 cm). Tubes, lines and devices: New mild fat stranding within the mediastinum, nonspecific. No fluid collection. Right-sided Port-A-Cath is present with tip in the right brachiocephalic vein. IMPRESSION: 1. No evidence of pulmonary embolus. 2. Increased patchy opacities in the right lung, predominantly in the right upper lobe, suspicious for infectious or inflammatory process. 3. New trace right pleural effusion. 4. Right hilar soft tissue density has slightly decreased. Per report, this was previously the site of a right hilar mass, although these images are not available.
[2016-12-06] MEDS ORDERED: SODIUM CHLORIDE 0.9% 1,000 ML IV SCH (23:45)
[2016-12-06] MEDS ORDERED: PNEUMONIA PROTOCOL UTILIZED 1 EACH MISC PO PRN (23:47)
[2016-12-06] MEDS ORDERED: LEVOFLOXACIN 750MG-D5W PMX 750 MG in DEXTROSE/WATER 1 150ML.BAG IVPB STA (23:47)
[2016-12-06] MEDS ORDERED: PIPERACILLIN-TAZOBACTAM 3.375 GM in DEXTROSE/WATER 1 50ML.BAG IVPB STA (23:47)
[2016-12-06] MEDS ORDERED: HYDROmorphone 1 MG/ML 1 ML SYRINGE IVP PRN (23:48)
[2016-12-07] MEDS ORDERED: ACETAMINOPHEN TAB 325 MG TAB PO PRN (01:44)
[2016-12-07] MEDS ORDERED: HYDROmorphone 1 MG/ML 1 ML SYRINGE IVP PRN (01:47)
[2016-12-07] MEDS: guaiFENesin-Coden 100-10MG/5ML 10 ML CUP PO PRN ×3 (03:12→23:37)
[2016-12-07] MEDS: MAGNESIUM SULFATE-D5W PMX 1 GM in DEXTROSE/WATER 1 100ML.BAG IVPB SCH ×6 (03:12→12:42)
[2016-12-07] MEDS: diphenhydrAMINE 25 MG CAP PO PRN ×2 (03:13→23:37)
[2016-12-07] MEDS: IPRATROPIUM-ALBUTEROL 3 ML NEB INHALATION PRN ×5 (04:05→19:13)
[2016-12-07] MEDS ORDERED: GLIMEPIRIDE 1 MG TAB PO SCH (07:30)
--- NOTE | 2016-12-07 07:48 | XR ---
EXAMINATION TYPE: XR chest 2V DATE OF EXAM: 12/07/2016 COMPARISON: 12/06/2016 HISTORY: Chest pain TECHNIQUE: Frontal and lateral views of the chest are obtained. FINDINGS: Hazy density right upper lobe as well as associated pleural thickening remain unchanged. Correlate fo r underlying pneumonia. MediPort catheter in place. No evidence for pneumothorax. No pleural effusion. The cardiac silhouette size is within normal limits. The osseous structures are grossly intact. IMPRESSION: 1. Hazy density right upper lobe as well as associated pleural thickening remain unchanged. Correlat e for underlying pneumonia.
--- NOTE | 2016-12-07 07:55 | P.HPIM ---
History of Present Illness H&P Date: 12/07/16 Chief Complaint: Cough and shortness of breath Patient is a 46 years old with history of small lung cell carcinoma with most recent treatment 3 weeks ago who presents to the emergency room with complaint of shortness of breath and cough Patient relates the cough spells to his radiation, he follows an outpatient with cancer Center and shortness of breath is post excisional and sitting the cough is dry and he has no chest pain In the emergency room his computed tomography scan showed right-sided pneumonia. Review of Systems Constitutional: Patient reports no fever, no chills, no weight changes, no change in appetite Eyes: Patient reports no double vision, no visual changes ENT: Patient reports no rhinorrhea, no post nasal drip, no sore throat Cardiovascular: Patient reports no chest pain, no edema, no palpitations, no syncope, no orthopnea, no paroxysmal nocturnal dyspnea. Respiratory: Patient reports dyspnea, cough dry Gastrointestinal: Patient reports no nausea, no vomiting, no constipation, no diarrhea Genitourinary: Patient reports no dysuria, no urinary frequency, no hematuria. Musculoskeletal: Patient reports no unusual joint pain, no joint swelling or weakness. Patient reports no muscular pain. Psychiatric: Patient reports no changes in mood, no sleeping problems. Patient reports no changes in memory. Endocrine: Patient reports no thirst, no polyuria, no cold intolerance, no heat intolerance. Neurological: Patient reports no unusual paresthesias, no seizures, no paresis , no paralysis, no facila droop, no headache. Heme/Lymphatic: Patient reports no easy bruising, no bleeding tendency, no lymphadenopathy. Allergic/ Immunologic: Patient reports no recent allergic reactions or immunologic history. Skin: Patient reports no rashes or unusual lesions. Past Medical History Past Medical History: Cancer, Diabetes Mellitus, Osteoarthritis (OA), Pneumonia Additional Past Medical History / Comment(s): mass rt side of chest - positive for cancer. completed 6 weeks of radiation tx, and chemo tx. pt stated "when he eats it feels like food gets stuck going down". History of Any Multi-Drug Resistant Organisms: None Reported Past Surgical History: Joint Replacement Additional Past Surgical History / Comment(s): emily. hip replacement,"power port rt upper chest", bronchosocopy w/bx Past Anesthesia/Blood Transfusion Reactions: Postoperative Nausea & Vomiting ( PONV) Past Psychological History: No Psychological Hx Reported Additional Psychological History / Comment(s): pt lives with his girlfriend of 17 years-nima, 1 cat. lives in single story home that has 5 steps to entry.. pt does have cane/walker to use if needed. no home care services. 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 Smoking Status: Current every day smoker Past Alcohol Use History: None Reported Additional Past Alcohol Use History / Comment(s): started smoking age 9 worked up to 1.5 ppd but has cut down-currently smokes 5-6 cigs per day. states he hasnt had a beer in about 5 months Past Drug Use History: None Reported - Past Family History Mother Family Medical History: Cancer Additional Family Medical History / Comment(s): colon cancer Father Family Medical History: No Reported History Medications and Allergies Home Medications Medication Instructions Recorded Confirmed Type Acetaminophen [Tylenol] 650 mg PO TID PRN 07/13/16 12/06/16 History Albuterol Inhaler [Ventolin Hfa 1 - 2 puff INHALATION RT-QID PRN 07/13/16 History Inhaler] HYDROcodone/APAP 10-325MG [[place] 1 tab PO Q4H PRN 07/13/16 12/06/16 History 10-325] Codeine Phosphate/Guaifenesin 5 ml PO Q4H PRN 12/06/16 12/06/16 History [Virtussin AC Liquid] Pioglitazone [Actos] 15 mg PO QAM 12/06/16 12/06/16 History Allergies Allergy/AdvReac Type Severity Reaction Status Date / Time mushroom AdvReac Nausea & Verified 12/06/16 22:32 Vomiting Anesthesia AdvReac Nausea & Uncoded 12/06/16 22:32 Vomiting Physical Exam Vitals: Vital Signs Temp Pulse Pulse Resp BP BP Pulse Ox 12/07/16 04:13 80 12/07/16 04:05 84 12/07/16 02:27 108 H 17 12/07/16 01:25 98.3 F 108 H 17 126/83 97 12/07/16 00:31 98.9 F 110 H 20 139/78 98 12/06/16 23:17 110 H 20 135/85 98 12/06/16 22:46 106 H 12/06/16 22:33 105 H 12/06/16 22:02 22 12/06/16 21:48 99.4 F 113 H 22 125/80 96 Intake and Output 12/06/16 12/07/16 12/07/16 22:59 06:59 14:59 Other: Weight 99.337 kg - Constitutional General appearance: average body habitus, cooperative, disheveled, severe distress - EENT Eyes: PERRLA, no ptosis, no scleral icterus, normal appearance Ears: bilateral: normal - Neck Neck: no lymphadenopathy, normal ROM, no thyromegaly Carotids: bilateral: upstroke normal Thyroid: right: normal size, negative: firm, nodule - Respiratory Respiratory: bilateral: rales, rhonchi, negative: CTA - Cardiovascular Rhythm: regular Heart sounds: normal: S1, S2 Abnormal Heart Sounds: no systolic murmur - Gastrointestinal General gastrointestinal: decreased bowel sounds, no distended, normal bowel sounds, no rigid, soft, tenderness - Integumentary Integumentary: no calor, no cellulitis, no cyanotic, normal, normal turgor - Neurologic Neurologic: CNII-XII intact, focal deficits - Musculoskeletal Musculoskeletal: gait normal, generalized weakness - Psychiatric Psychiatric: A&O x's 3, appropriate affect, intact judgment & insight Results CBC & Chem 7: 12/06/16 21:52 12/06/16 21:52 Labs: Abnormal Lab Results - Last 24 Hours (Table) 12/06/16 12/06/16 12/06/16 Range/Units 21:52 21:52 21:52 RBC 2.65 L (4.30-5.90) m/uL Hgb 8.5 L (13.0-17.5) gm/dL Hct 25.7 L (39.0-53.0) % RDW 18.8 H (11.5-15.5) % Plt Count 60 L D (150-450) k/uL Lymphocytes # 0.8 L (1.0-4.8) k/uL D-Dimer (<0.60) mg/L FEU Glucose 127 H (74-99) mg/dL Magnesium 0.8 L* (1.6-2.3) mg/dL AST 14 L (17-59) U/L ALT 20 L (21-72) U/L Total Creatine Kinase 47 L (55-170) U/L Total Protein 6.2 L (6.3-8.2) g/dL 12/06/16 Range/Units 21:52 RBC (4.30-5.90) m/uL Hgb (13.0-17.5) gm/dL Hct (39.0-53.0) % RDW (11.5-15.5) % Plt Count (150-450) k/uL Lymphocytes # (1.0-4.8) k/uL D-Dimer 1.73 H (<0.60) mg/L FEU Glucose (74-99) mg/dL Magnesium (1.6-2.3) mg/dL AST (17-59) U/L ALT (21-72) U/L Total Creatine Kinase (55-170) U/L Total Protein (6.3-8.2) g/dL Thrombosis Risk Factor Assmnt - Choose All That Apply Each Factor Represents 1 point: Age 41-60 years, Serious lung disease incl. pneumonia (< 1month) Other congenital or acquired thrombophilia - If yes, enter type in comment: No Thrombosis Risk Factor Assessment Total Risk Factor Score: 2 Thrombosis Risk Factor Assessment Level: Low Risk Assessment and Plan (1) Community acquired pneumonia Narrative/Plan: This could be related to his radiation therapy as well, however is at risk of infection so we cannot rule out gout is acquired pneumonia Will treat his antibiotics broad spectrum in view of his [immunological status and chemotherapy, I'll order oxygen will control his cough Is not neutropenic and does not require ICU admission but he certainly needs to be closely monitored and started him on DVT prophylaxis and GI prophylaxis] Status: Acute (2) Small cell lung carcinoma Narrative/Plan: This been treated as an outpatient with the cancer Center we will obtain oncology and definitive treatment to them Status: Acute (3) Antineoplastic chemotherapy induced pancytopenia Narrative/Plan: He has history of pancytopenia which currently in improved associated is not neutropenic and his hemoglobin is stable we will continue to monitor his CBC on daily basis Status: Acute (4) COPD mixed type Narrative/Plan: I doubt exacerbation at this point as patient is not wheezing has no rhonchi his lung is clear otherwise except at the site of pneumonitis We'll continue his albuterrol, I will provide oxygen I did financial services counselor him regarding nicotine cessation. Status: Chronic (5) Nicotine addiction Narrative/Plan: I did provide extensive smoking cessation and offered patch Status: Acute Time with Patient: Greater than 30
[2016-12-07] MEDS ORDERED: BENZONATATE 100 MG CAP PO PRN (09:00)
[2016-12-07] MEDS: PIPERACILLIN-TAZOBACTAM 3.375 GM in DEXTROSE/WATER 1 50ML.BAG IVPB SCH ×2 (09:33→16:14)
[2016-12-07 09:44] LABS: Magnesium 1.9 mg/dL (1.6-2.3); Phosphorous 3.7 mg/dL (2.5-4.5)
--- NOTE | 2016-12-07 12:15 | P.CNPUL ---
History of Present Illness Consult date: 12/07/16 Reason for consult: dyspnea, cough, chest pain, pneumonia Chief complaint: Shortness of breath and chest discomfort History of present illness: Consult dated 12/07/2016 46-year-old male who was recently diagnosed by my partner using a transbronchial needle aspiration technique, was diagnosed with small cell lung cancer. She's about 6 months ago. The patient unfortunately continues to smoke. States he only smokes a couple cigarettes a day. The patient has undergone chemo and radiation therapy. His medical oncologist is Dr. Clifford in his radiation doctor is Dr. Nadeem Santoro. The patient comes in with complaints of shortness of breath. Coughing up some phlegm. Also pain in the right chest area. No fever. No nausea vomiting or diarrhea. The patient feels a bit better today. The #1 thing is really affecting him now is his cough. He has not been in back into the office to see my partner. Review of Systems A 12 point review of system is positive for shortness of breath cough right- sided chest pain and minimal phlegm production. Past Medical History Past Medical History: Cancer, Diabetes Mellitus, Osteoarthritis (OA), Pneumonia Additional Past Medical History / Comment(s): mass rt side of chest - positive for cancer. completed 6 weeks of radiation tx, and chemo tx. pt stated "when he eats it feels like food gets stuck going down". History of Any Multi-Drug Resistant Organisms: None Reported Past Surgical History: Joint Replacement Additional Past Surgical History / Comment(s): emily. hip replacement,"power port rt upper chest", bronchosocopy w/bx Past Anesthesia/Blood Transfusion Reactions: Postoperative Nausea & Vomiting ( PONV) Past Psychological History: No Psychological Hx Reported Additional Psychological History / Comment(s): pt lives with his girlfriend of 17 years-nima, 1 cat. lives in single story home that has 5 steps to entry.. pt does have cane/walker to use if needed. no home care services. 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 Smoking Status: Current every day smoker Past Alcohol Use History: None Reported Additional Past Alcohol Use History / Comment(s): started smoking age 9 worked up to 1.5 ppd but has cut down-currently smokes 5-6 cigs per day. states he hasnt had a beer in about 5 months Past Drug Use History: None Reported - Past Family History Mother Family Medical History: Cancer Additional Family Medical History / Comment(s): colon cancer Father Family Medical History: No Reported History Medications and Allergies Home Medications Medication Instructions Recorded Confirmed Type Acetaminophen [Tylenol] 650 mg PO TID PRN 07/13/16 12/06/16 History Albuterol Inhaler [Ventolin Hfa 1 - 2 puff INHALATION RT-QID PRN 07/13/16 History Inhaler] HYDROcodone/APAP 10-325MG [[place] 1 tab PO Q4H PRN 07/13/16 12/06/16 History 10-325] Codeine Phosphate/Guaifenesin 5 ml PO Q4H PRN 12/06/16 12/06/16 History [Virtussin AC Liquid] Pioglitazone [Actos] 15 mg PO QAM 12/06/16 12/06/16 History Allergies Allergy/AdvReac Type Severity Reaction Status Date / Time mushroom AdvReac Nausea & Verified 12/06/16 22:32 Vomiting Anesthesia AdvReac Nausea & Uncoded 12/06/16 22:32 Vomiting Physical Exam Osteopathic Statement: *. No significant issues noted on an osteopathic structural exam other than those noted in the History and Physical/Consult. Vitals: Vital Signs Temp Pulse Pulse Resp BP BP Pulse Ox 12/07/16 11:35 80 12/07/16 11:25 78 12/07/16 10:51 94 12/07/16 07:43 76 12/07/16 07:32 72 12/07/16 07:00 98.1 F 94 28 H 121/74 97 12/07/16 04:13 80 12/07/16 04:05 84 12/07/16 02:27 108 H 17 12/07/16 01:25 98.3 F 108 H 17 126/83 97 12/07/16 00:31 98.9 F 110 H 20 139/78 98 12/06/16 23:17 110 H 20 135/85 98 12/06/16 22:46 106 H 12/06/16 22:33 105 H 12/06/16 22:02 22 12/06/16 21:48 99.4 F 113 H 22 125/80 96 Intake and Output 12/06/16 12/07/16 12/07/16 22:59 06:59 14:59 Intake Total 1100 Balance 1100 Intake: Intake, IV Titration 1100 Amount Levofloxacin 750Mg-D5w 150 Pmx 750 mg In Dextrose/ Water 1 150ml.bag @ 100 mls/hr IVPB HS MIR Rx#: [id number] Magnesium Sulfate-D5w Pmx 100 1 gm In Dextrose/Water 1 100ml.bag @ 100 mls/hr IVPB Q1H [facility] Rx#: [id number] Piperacillin-Tazobactam 3 50 .375 gm In Dextrose/Water 1 50ml.bag @ 12.5 mls/hr IVPB Q8HR MIR Rx#: [id number] Sodium Chloride 0.9% 1, 800 000 ml @ 100 mls/hr IV . Q10H MIR Rx#:[id number] Other: Voiding Method Toilet Weight 99.337 kg No acute distress, no respiratory distress. He did not cough one time when I was in the room. HEENT examination reveals it to be relatively normal. He is alopecia from his chemotherapy. Mucous membranes are moist. No oral lesions. Neck supple full range of motion no adenopathy or thyromegaly. Cardiovascular examination reveals regular rhythm rate. S1-S2 normal. Lungs reveal some inspiratory and expiratory wheezes and rhonchi. Breath sounds are diminished. Slight prolongation on forced maneuver. Abdomen soft bowel sounds are heard. Extremities are intact. No cyanosis clubbing or edema. Skin without rash. Neurologic examination is nonfocal. Results - Laboratory Findings CBC and BMP: 12/06/16 21:52 12/06/16 21:52 PT/INR, D-dimer PT 10.3 sec (9.0-12.0) 12/06/16 21:52 INR 1.0 (<1.2) 12/06/16 21:52 D-Dimer 1.73 mg/L FEU (<0.60) H 12/06/16 21:52 Abnormal lab findings: Abnormal Labs 12/06/16 12/06/16 12/06/16 21:52 21:52 21:52 RBC 2.65 L Hgb 8.5 L Hct 25.7 L RDW 18.8 H Plt Count 60 L D Lymphocytes # 0.8 L D-Dimer Glucose 127 H Magnesium 0.8 L* AST 14 L ALT 20 L Total Creatine Kinase 47 L Total Protein 6.2 L 12/06/16 21:52 RBC Hgb Hct RDW Plt Count Lymphocytes # D-Dimer 1.73 H Glucose Magnesium AST ALT Total Creatine Kinase Total Protein - Diagnostic Findings Chest x-ray: image reviewed CT scan - chest: image reviewed (The patient's labs x-rays a medications are all reviewed.) Assessment and Plan (1) Acute exacerbation of chronic obstructive airways disease Status: Acute (2) Community acquired pneumonia Status: Acute (3) Nicotine addiction Status: Acute (4) Small cell lung carcinoma Status: Acute (5) Antineoplastic chemotherapy induced pancytopenia Status: Acute (6) Dehydration Status: Acute (7) Hilar mass Status: Acute Plan: Plan dated 12/07/2016 The patient's chest x-ray and CAT scan suggested possibility of pneumonia in the right upper lobe. His right hilar mass is decreased in size consistent with the fact that he received radiation and chemo for small cell lung cancer. This lung cancer is very responsive to chemotherapy. The patient will have antibiotics updrafts corticosteroids. We will evaluate his current med list. Additional recommendations suggestions are forthcoming. Prognosis is guarded. No discharge recommendations are made. Time with Patient: Greater than 30
[2016-12-07] MEDS: ENOXAPARIN 40 MG/0.4 ML SYRINGE SQ SCH (13:08)
[2016-12-07] MEDS: BENZOCAINE/MENTHOL LOZENG 1 EACH LOZENGE MUCOUS MEM PRN ×4 (13:10→23:38)
[2016-12-07] MEDS: HYDROcodone/APAP 10-325MG 1 EACH TAB PO PRN ×3 (13:16→23:37)
--- NOTE | 2016-12-07 15:59 | P.PN ---
Subjective Principal diagnosis: shortness of breath Patient is a 46-year-old male with past medical history of small cell lung cancer status post chemo and radiation therapy with optimal results, echo abuse, and diabetes mellitus type 2 presented with shortness of breath. In the ER he was subsequently diagnosed with pneumonia and exacerbation of COPD. He was started on antibiotics, bronchodilators, and steroids. Pulmonary was consultation and agreed with current plan of care. He is also found to have severe hypomagnesemia and dehydration. Patient seen and examined at bedside. He reports that shortness of breath is much improved from yesterday. He continues to struggle with cough but has not requested to his as needed cough medications. He is requesting something for a sore throat. He denies any nausea, vomiting, or diarrhea. Objective - Vital Signs Vital signs: Vital Signs Temp 98.1 F 12/07/16 07:00 Pulse 80 12/07/16 11:35 Resp 28 H 12/07/16 07:00 BP 121/74 12/07/16 07:00 Pulse Ox 97 12/07/16 07:00 Intake & Output 12/06/16 12/07/16 12/07/16 18:59 06:59 18:59 Intake Total 1100 Balance 1100 Weight 99.337 kg Intake: Intake, IV Titration 1100 Amount Levofloxacin 750Mg-D5w 150 Pmx 750 mg In Dextrose/ Water 1 150ml.bag @ 100 mls/hr IVPB HS MIR Rx#: [id number] Magnesium Sulfate-D5w Pmx 100 1 gm In Dextrose/Water 1 100ml.bag @ 100 mls/hr IVPB Q1H [facility]IR Rx#: [id number] Piperacillin-Tazobactam 3 50 .375 gm In Dextrose/Water 1 50ml.bag @ 12.5 mls/hr IVPB Q8HR MIR Rx#: [id number] Sodium Chloride 0.9% 1, 800 000 ml @ 100 mls/hr IV . Q10H MIR Rx#:[id number] Other: Voiding Method Toilet - Exam General: non toxic, mild distress, appears at stated age Derm: no rashes, no lesions Head: atraumatic, normocephalic, symmetric Eyes: EOMI, no lid lag, anicteric sclera ENT: no post nasal drip, no thrush Mouth: no lip lesion, mucus membranes dry Cardiovascular: S1S2 reg, no murmur, positive posterior tibial pulse bilateral, Lungs: wheezing bilateral bases, no rhonchi, no rales , no accessory muscle use Abdominal: soft, nontender to palpation, no guarding, no appreciable organomegaly Ext: no gross muscle atrophy, no edema, no contractures Neuro: CN II-XI grossly intact, no focal neuro deficits Psych: Alert, oriented, appropriate affect - Labs CBC & Chem 7: 12/06/16 21:52 12/06/16 21:52 Labs: Abnormal Lab Results - Last 24 Hours (Table) 12/06/16 12/06/16 12/06/16 Range/Units 21:52 21:52 21:52 RBC 2.65 L (4.30-5.90) m/uL Hgb 8.5 L (13.0-17.5) gm/dL Hct 25.7 L (39.0-53.0) % RDW 18.8 H (11.5-15.5) % Plt Count 60 L D (150-450) k/uL Lymphocytes # 0.8 L (1.0-4.8) k/uL D-Dimer (<0.60) mg/L FEU Glucose 127 H (74-99) mg/dL Magnesium 0.8 L* (1.6-2.3) mg/dL AST 14 L (17-59) U/L ALT 20 L (21-72) U/L Total Creatine Kinase 47 L (55-170) U/L Total Protein 6.2 L (6.3-8.2) g/dL 12/06/16 Range/Units 21:52 RBC (4.30-5.90) m/uL Hgb (13.0-17.5) gm/dL Hct (39.0-53.0) % RDW (11.5-15.5) % Plt Count (150-450) k/uL Lymphocytes # (1.0-4.8) k/uL D-Dimer 1.73 H (<0.60) mg/L FEU Glucose (74-99) mg/dL Magnesium (1.6-2.3) mg/dL AST (17-59) U/L ALT (21-72) U/L Total Creatine Kinase (55-170) U/L Total Protein (6.3-8.2) g/dL Assessment and Plan Plan: right-sided pneumonia, healthcare acquired, possible [id number], Levaquin, follow chest x-ray clear, bronchodilators, pulmonary recommendations appreciated acute exacerbation of COPD-steroids, bronchodilators, pulmonary hygiene, antibiotic, pulmonary recommendations appreciated Small cell lung cancer-good response to chemotherapy, maintain outpatient follow -up with Dr. Clifford Prior tobacco abuse- continue cessation Diabetes mellitus type 2-hold Amaryl, start sliding scale insulin with steroid use, check hemoglobin A1c hypomagnesemia-replace, recheck in a.m. anemia, appears at baseline after chemo-will check iron studies, follow CBC DVT prophylaxis: lovenox Discussed with: patient, nursing by phone Anticipated discharge: 24-[address]: home A total of 45 minutes was spent on the care of this complex patient more than 50 % of the time was spent in counseling and care coordination.
[2016-12-07 17:43] LABS: Glucose,Whole Blood 133 mg/dL (75-99)
[2016-12-07] MEDS: INSULIN LISPRO (humaLOG) 300 UNIT/3 ML VIAL SQ SCH ×2 (17:52→21:29)
[2016-12-07] MEDS: methylPREDNISolone SOD SUCCI 125 MG/2 ML VIAL IV SCH ×2 (18:30→23:36)
[2016-12-07] MEDS: SYMBICORT 160-4.5 MCG INHALER INHALATION SCH (19:13)
--- NOTE | 2016-12-07 19:14 | P.CONS ---
History of Present Illness - Reason for Consult Consult date: 12/07/16 Lung Infiltrate. Small cell lung cancer - History of Present Illness The patient is a 46-year-old gentleman, known to our service. 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 He then presented in 07/30, with a right hilar lung mass, with bronchoscopy positive for small cell lung cancer. PET scan revealed mediastinal involvement, but no evidence of distant disease. The patient was started on concurrent chemoradiation, with [employer] HELPER-16 and cisplatin use as a chemo arm. He completed the concurrent phase of treatment in late 09/29. He completed his sixth and last cycle of chemotherapy about 2 weeks ago. The patient states that since completing radiation, he has had a chronic cough , that did improve post radiation, but persisted. This was associated with production of whitish phlegm. Over the last 2-3 days, he states that the cough got much worse. He actually had a couple of episodes of vomiting because of the cough. In addition over the last 2 days, he developed progressive shortness of breath. He therefore came into the emergency room, where chest x- ray showed right upper lobe opacities. He had a CTA, that was negative for pulmonary embolus. This was compared to the previous computed tomography scan done on 10/29. The right hilar mass was noted to have decreased further. However new infiltrate was noted in the right upper lobe. He was therefore admitted further management. The patient has been started on antibiotics, steroids, as well as breathing treatments. He has noted a slight improvement. The consult was placed for further evaluation, given new infiltrate with his history of cancer and chemoradiation Review of Systems Constitutional: Reports weakness Eyes: denies blurred vision, denies pain Ears: deny: decreased hearing, ear discharge, earache, tinnitus Ears, nose, mouth and throat: Denies headache, Denies sore throat Cardiovascular: Reports decreased exercise tolerance Respiratory: Reports congestion, Reports cough with sputum, Reports dyspnea, Reports pain on inspiration Gastrointestinal: Reports nausea, Reports vomiting, Denies abdominal pain, Denies diarrhea Genitourinary: Reports as per HPI (No specific complaints) Musculoskeletal: Denies myalgias Integumentary: Denies pruritus, Denies rash Neurological: Reports weakness, Denies numbness Psychiatric: Denies anxiety, Denies depression Endocrine: Denies fatigue, Denies weight change Hematologic/Lymphatic: Reports as per HPI Past Medical History Past Medical History: Cancer, Diabetes Mellitus, Osteoarthritis (OA), Pneumonia Additional Past Medical History / Comment(s): mass rt side of chest - positive for cancer. completed 6 weeks of radiation tx, and chemo tx. pt stated "when he eats it feels like food gets stuck going down". History of Any Multi-Drug Resistant Organisms: None Reported Past Surgical History: Joint Replacement Additional Past Surgical History / Comment(s): emily. hip replacement,"power port rt upper chest", bronchosocopy w/bx Past Anesthesia/Blood Transfusion Reactions: Postoperative Nausea & Vomiting ( PONV) Past Psychological History: No Psychological Hx Reported Additional Psychological History / Comment(s): pt lives with his girlfriend of 17 years-nima, 1 cat. lives in single story home that has 5 steps to entry.. pt does have cane/walker to use if needed. no home care services. 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 Smoking Status: Current every day smoker Past Alcohol Use History: None Reported Additional Past Alcohol Use History / Comment(s): started smoking age 9 worked up to 1.5 ppd but has cut down-currently smokes 5-6 cigs per day. states he hasnt had a beer in about 5 months Past Drug Use History: None Reported - Past Family History Mother Family Medical History: Cancer Additional Family Medical History / Comment(s): colon cancer Father Family Medical History: No Reported History Medications and Allergies Home Medications Medication Instructions Recorded Confirmed Type Acetaminophen [Tylenol] 650 mg PO TID PRN 07/13/16 12/06/16 History Albuterol Inhaler [Ventolin Hfa 1 - 2 puff INHALATION RT-QID PRN 07/13/16 History Inhaler] HYDROcodone/APAP 10-325MG [[place] 1 tab PO Q4H PRN 07/13/16 12/06/16 History 10-325] Codeine Phosphate/Guaifenesin 5 ml PO Q4H PRN 12/06/16 12/06/16 History [Virtussin AC Liquid] Pioglitazone [Actos] 15 mg PO QAM 12/06/16 12/06/16 History Allergies Allergy/AdvReac Type Severity Reaction Status Date / Time mushroom AdvReac Nausea & Verified 12/06/16 22:32 Vomiting Anesthesia AdvReac Nausea & Uncoded 12/06/16 22:32 Vomiting Physical Exam Vitals: Vital Signs Temp Pulse Pulse Resp BP BP Pulse Ox 12/07/16 16:31 94 12/07/16 16:22 80 94 L 12/07/16 16:08 98.6 F 102 H 18 123/65 95 12/07/16 15:43 102 H 12/07/16 11:35 80 12/07/16 11:25 78 12/07/16 10:51 94 12/07/16 07:43 76 12/07/16 07:32 72 12/07/16 07:00 98.1 F 94 28 H 121/74 97 12/07/16 04:13 80 12/07/16 04:05 84 12/07/16 02:27 108 H 17 12/07/16 01:25 98.3 F 108 H 17 126/83 97 12/07/16 00:31 98.9 F 110 H 20 139/78 98 12/06/16 23:17 110 H 20 135/85 98 12/06/16 22:46 106 H 12/06/16 22:33 105 H 12/06/16 22:02 22 12/06/16 21:48 99.4 F 113 H 22 125/80 96 Intake and Output 12/07/16 12/07/16 12/07/16 06:59 14:59 22:59 Intake Total 1100 600 Balance 1100 600 Intake: Intake, IV Titration 1100 600 Amount Levofloxacin 750Mg-D5w 150 150 Pmx 750 mg In Dextrose/ Water 1 150ml.bag @ 100 mls/hr IVPB HS MIR Rx#: [id number] Magnesium Sulfate-D5w Pmx 100 1 gm In Dextrose/Water 1 100ml.bag @ 100 mls/hr IVPB Q1H MIR Rx#: [id number] Piperacillin-Tazobactam 3 50 50 .375 gm In Dextrose/Water 1 50ml.bag @ 12.5 mls/hr IVPB Q8HR MIR Rx#: [id number] Sodium Chloride 0.9% 1, 800 400 000 ml @ 100 mls/hr IV . Q10H MIR Rx#:[id number] Other: Voiding Method Toilet Toilet Urinal - Constitutional General appearance: mild distress - EENT Eyes: EOMI, PERRLA ENT: hearing grossly normal, normal oropharynx - Neck Neck: no lymphadenopathy Thyroid: bilateral: normal size - Respiratory Respiratory: bilateral: diminished - Cardiovascular Rhythm: regular Heart sounds: normal: S1, S2 - Gastrointestinal General gastrointestinal: normal bowel sounds, soft - Integumentary Integumentary: normal - Neurologic Neurologic: CNII-XII intact - Musculoskeletal Musculoskeletal: strength equal bilaterally - Psychiatric Psychiatric: A&O x's 3, appropriate affect, intact judgment & insight Results CBC & Chem 7: 12/06/16 21:52 12/06/16 21:52 Labs: Abnormal Lab Results - Last 24 Hours (Table) 12/06/16 12/06/16 12/06/16 Range/Units 21:52 21:52 21:52 RBC 2.65 L (4.30-5.90) m/uL Hgb 8.5 L (13.0-17.5) gm/dL Hct 25.7 L (39.0-53.0) % RDW 18.8 H (11.5-15.5) % Plt Count 60 L D (150-450) k/uL Lymphocytes # 0.8 L (1.0-4.8) k/uL D-Dimer (<0.60) mg/L FEU Glucose 127 H (74-99) mg/dL POC Glucose (mg/dL) (75-99) mg/dL Magnesium 0.8 L* (1.6-2.3) mg/dL AST 14 L (17-59) U/L ALT 20 L (21-72) U/L Total Creatine Kinase 47 L (55-170) U/L Total Protein 6.2 L (6.3-8.2) g/dL 12/06/16 12/07/16 Range/Units 21:52 17:28 RBC (4.30-5.90) m/uL Hgb (13.0-17.5) gm/dL Hct (39.0-53.0) % RDW (11.5-15.5) % Plt Count (150-450) k/uL Lymphocytes # (1.0-4.8) k/uL D-Dimer 1.73 H (<0.60) mg/L FEU Glucose (74-99) mg/dL POC Glucose (mg/dL) 133 H (75-99) mg/dL Magnesium (1.6-2.3) mg/dL AST (17-59) U/L ALT (21-72) U/L Total Creatine Kinase (55-170) U/L Total Protein (6.3-8.2) g/dL Chest x-ray: report reviewed CT scan - chest: report reviewed, image reviewed (Reports of current scan and scan compared. Images of current, and 10/29 scan personally reviewed and compared) Assessment and Plan (1) Pneumonia involving right lung Narrative/Plan: The patient is presenting with the new onset of acute respiratory failure, which appears to be related to a new infiltrate in the right upper lobe. The tumor mass actually appears to have decreased further in size. This area does not appear masslike. The differential therefore includes an infectious pneumonia, versus radiation pneumonitis. At this point, the distinction will be somewhat hard to make. Therefore treated with antibiotics, as well as steroids, that would cover both possibilities is quite appropriate. Continue to monitor, for response. I would recommend a steroid taper on discharge, as well as follow-up scans to document resolution. He will be having those anyway , as part of follow-up of his small cell lung cancer. Status: Acute (2) Small cell lung carcinoma Narrative/Plan: The patient has completed his planned treatment, for his limited stage small cell lung cancer. He did have esophagitis, and increased upper airway congestion and cough around the time of completion of radiation. Swallowing, and congestion had improved significantly though the cough has persisted. Computed tomography scan in 10/29 had shown a good partial response, with current CTA showing further decrease in size of the right hilar mass. He will continue follow-up in the office for surveillance with serial CT scans and clinical exams. Status: Acute
[2016-12-07 21:56] LABS: Hemoglobin A1C 6.8 % (4.2-6.1)
[2016-12-07] MEDS ORDERED: LEVOFLOXACIN 750MG-D5W PMX 750 MG in DEXTROSE/WATER 1 150ML.BAG IVPB SCH (23:00)
[2016-12-08] MEDS: PIPERACILLIN-TAZOBACTAM 3.375 GM in DEXTROSE/WATER 1 50ML.BAG IVPB SCH ×2 (01:14→07:29)
[2016-12-08] MEDS: BENZOCAINE/MENTHOL LOZENG 1 EACH LOZENGE MUCOUS MEM PRN ×2 (05:45→10:17)
[2016-12-08] MEDS: HYDROcodone/APAP 10-325MG 1 EACH TAB PO PRN ×2 (05:45→10:50)
[2016-12-08] MEDS: guaiFENesin-Coden 100-10MG/5ML 10 ML CUP PO PRN (05:46)
[2016-12-08] MEDS: methylPREDNISolone SOD SUCCI 125 MG/2 ML VIAL IV SCH ×2 (05:49→12:38)
[2016-12-08 07:22] LABS: Anisocytosis Slight; CH 32.7; CHCM 32.9; HCT 24.7 % (39.0-53.0); HDW 2.81; MCH 32.2 pg (25.0-35.0); MCHC 32.3 g/dL (31.0-37.0); Macrocytosis Moderate; RBC 2.47 m/uL (4.30-5.90); RDW 18.8 % (11.5-15.5)
[2016-12-08] MEDS: ENOXAPARIN 40 MG/0.4 ML SYRINGE SQ SCH (07:29)
[2016-12-08 07:33] LABS: Glucose,Whole Blood 268 mg/dL (75-99)
[2016-12-08 07:36] LABS: ALT 17 U/L (21-72); AST 13 U/L (17-59); Alkaline Phosphatase 98 U/L (38-126); Anion Gap 13 mmol/L; Blood Urea Nitrogen 16 mg/dL (9-20); Calcium 9.5 mg/dL (8.4-10.2); Carbon Dioxide 22 mmol/L (22-30); Chloride 100 mmol/L (98-107); Glucose 257 mg/dL (74-99); Iron 59 ug/dL (49-181); Magnesium 1.3 mg/dL (1.6-2.3); Non-African American GFR(MDRD) >60 (>60 ml/min/1.73 sqM); Potassium 5.1 mmol/L (3.5-5.1); Sodium 135 mmol/L (137-145); Total Bilirubin 0.3 mg/dL (0.2-1.3); Total Protein 6.1 g/dL (6.3-8.2)
[2016-12-08] MEDS: INSULIN LISPRO (humaLOG) 300 UNIT/3 ML VIAL SQ SCH ×2 (07:43→12:38)
[2016-12-08 07:45] LABS: % Iron Saturation 21.4 % (20-50); Total Iron Binding Capacity 276 ug/dL (261-462)
[2016-12-08] MEDS: IPRATROPIUM-ALBUTEROL 3 ML NEB INHALATION PRN ×2 (08:41→12:00)
[2016-12-08] MEDS: SYMBICORT 160-4.5 MCG INHALER INHALATION SCH (08:41)
--- NOTE | 2016-12-08 09:48 | XR ---
EXAMINATION TYPE: XR chest 1V portable DATE OF EXAM: 12/08/2016 COMPARISON: 12/07/2016 HISTORY: Follow-up pneumonia TECHNIQUE: Single frontal view of the chest is obtained. FINDINGS: Right perihilar infiltrate persists. Mediport catheter is coiled with the tip at the level of the SVC. Pleural-based thickening noted. No pleural effusion or pneumothorax. Findings appear sta ble. IMPRESSION: 1. Stable right perihilar infiltrate.
[2016-12-08] MEDS: MAGNESIUM SULFATE-D5W PMX 1 GM in DEXTROSE/WATER 1 100ML.BAG IVPB SCH ×4 (10:20→14:49)
--- NOTE | 2016-12-08 11:49 | P.PN ---
Subjective 46-year-old male who was recently diagnosed by Dr. Mckeon using a transbronchial needle aspiration technique, was diagnosed with small cell lung cancer. He's about 6 months ago. The patient unfortunately continues to smoke. States he only smokes a couple cigarettes a day. The patient has undergone chemo and radiation therapy. His medical oncologist is Dr. Clifford in his radiation doctor is Dr. Nadeem Santoro. The patient comes in with complaints of shortness of breath. Coughing up some phlegm. Also pain in the right chest area. No fever. No nausea vomiting or diarrhea. The patient feels a bit better today. The #1 thing is really affecting him now is his cough. He has not been in back into the office to see Dr. Mckeon. The patient was seen again today 12/08/2016 in follow-up on the oncology floor. He is awake and alert in no acute distress. He states he is breathing easier today as compared to yesterday. He continues with a dry nonproductive cough. No chills or night sweats. He is maintaining good O2 saturations in the upper 90s on room air. He has been afebrile. Hemodynamically stable. Today's chest x-ray reveals a stable right perihilar infiltrate. Sputum culture is pending. No leukocytosis. Hemoglobin 8.0. Platelet count 93,000. Objective - Vital Signs Vital signs: Vital Signs Temp 97.8 F 12/08/16 07:00 Pulse 88 12/08/16 08:52 Resp 18 12/08/16 07:00 BP 127/77 12/08/16 07:00 Pulse Ox 98 12/08/16 07:00 Intake & Output 12/07/16 12/08/16 12/08/16 18:59 06:59 18:59 Intake Total 600 1460 Balance 600 1460 Weight 99.337 kg Intake: Intake, IV Titration 600 960 Amount Levofloxacin 750Mg-D5w 150 150 Pmx 750 mg In Dextrose/ Water 1 150ml.bag @ 100 mls/hr IVPB HS MIR Rx#: [id number] Piperacillin-Tazobactam 3 50 50 .375 gm In Dextrose/Water 1 50ml.bag @ 12.5 mls/hr IVPB Q8HR MIR Rx#: [id number] Sodium Chloride 0.9% 1, 400 000 ml @ 100 mls/hr IV . Q10H MIR Rx#:[id number] Sodium Chloride 0.9% 1, 760 000 ml @ 100 mls/hr IV . Q10H STA Rx#:[id number] Oral 500 Other: Voiding Method Toilet Toilet Toilet # Voids 4 1 # Bowel Movements 1 - Exam GENERAL EXAM: Alert, active, comfortable in no apparent distress. HEAD: Normocephalic. EYES: Normal reaction of pupils, equal size. NOSE: Clear with pink turbinates. THROAT: No erythema or exudates. NECK: No masses, no JVD. CHEST: No chest wall deformity. LUNGS: Equal air entry with no crackles, wheeze, rhonchi or dullness. CVS: S1 and S2 normal with no audible mumurs, regular rhythm. ABDOMEN: No hepatosplenomegaly, normal bowel sounds, no guarding or rigidity. SPINE: No scoliosis or deformity SKIN: No rashes CENTRAL NERVOUS SYSTEM: No focal deficits, tone is normal in all 4 extremities. Extremities: There is no significant peripheral edema. No clubbing, no cyanosis. Peripheral pulses are intact. - Labs CBC & Chem 7: 12/08/16 06:50 12/08/16 06:50 Labs: Abnormal Lab Results - Last 24 Hours (Table) 12/07/16 12/07/16 12/08/16 Range/Units 08:40 17:28 06:50 RBC 2.47 L (4.30-5.90) m/uL Hgb 8.0 L (13.0-17.5) gm/dL Hct 24.7 L (39.0-53.0) % RDW 18.8 H (11.5-15.5) % Plt Count 93 L D (150-450) k/uL Sodium (137-145) mmol/L Glucose (74-99) mg/dL POC Glucose (mg/dL) 133 H (75-99) mg/dL Hemoglobin A1c 6.8 H (4.2-6.1) % Magnesium (1.6-2.3) mg/dL AST (17-59) U/L ALT (21-72) U/L Total Protein (6.3-8.2) g/dL 12/08/16 12/08/16 Range/Units 06:50 07:31 RBC (4.30-5.90) m/uL Hgb (13.0-17.5) gm/dL Hct (39.0-53.0) % RDW (11.5-15.5) % Plt Count (150-450) k/uL Sodium 135 L (137-145) mmol/L Glucose 257 H (74-99) mg/dL POC Glucose (mg/dL) 268 H (75-99) mg/dL Hemoglobin A1c (4.2-6.1) % Magnesium 1.3 L (1.6-2.3) mg/dL AST 13 L (17-59) U/L ALT 17 L (21-72) U/L Total Protein 6.1 L (6.3-8.2) g/dL Microbiology - Last 24 Hours (Table) 12/07/16 19:11 Gram Stain - Preliminary Sputum Sputum Culture - Preliminary 12/06/16 07:45 Gram Stain - Preliminary Sputum Assessment and Plan Plan: Impression: #1 Acute exacerbation of chronic obstructive pulmonary disease complicated by a community-acquired pneumonia. #2 Chronic and ongoing tobacco dependence. #3 Small cell lung cancer status post chemo/radiation. #4 Pancytopenia secondary to chemotherapy. #5 Dehydration. #6 Continued evidence of a right hilar mass. Plan: The patient was seen and evaluated by Dr. Honre. His chest x-ray and labs were reviewed. He'll remain on antibiotics in the form of Zosyn and Levaquin. Continue with updraft treatments including duo nebs. Continue Symbicort and IV Solu Medrol. Increase his activity as tolerated. We'll continue to follow.
[2016-12-08 12:11] LABS: Glucose,Whole Blood 333 mg/dL (75-99)
[2016-12-08 15:55] VITALS: BP 126/79; PULSE 114; RESP 20; TEMP 97.7
--- NOTE | 2016-12-08 17:22 | P.DS ---
Providers Date of admission: 12/06/16 23:50 Expected date of discharge: 12/08/16 (Delayed charting patient seen at 11 AM) Attending physician: Jorge Sal MD Consults: 12/06/16 23:47 Consult Physician Routine Consulting Provider: Juan Clifford Consult Reason/Comments: known Do you want consulting provider notified?: Yes Consult Physician Routine Consulting Provider: Terri Mckeon Consult Reason/Comments: known Do you want consulting provider notified?: Yes Primary care physician: Katelyn Harrington - Discharge Diagnosis(es) (1) Acute exacerbation of chronic obstructive airways disease Status: Acute Priority: High (2) Community acquired pneumonia Status: Acute Priority: High (3) Dehydration Status: Acute Priority: High (4) Small cell lung carcinoma Status: Acute Priority: High (5) Weakness generalized Status: Acute Priority: Medium (6) Diabetes mellitus type 2 in nonobese Status: Acute (7) Anemia Status: Acute (8) Hypomagnesemia Status: Acute Hospital Course: Patient is a 46-year-old male with past medical history of small cell lung cancer status post chemo and radiation therapy with optimal results, echo abuse, and diabetes mellitus type 2 presented with shortness of breath. In the ER he was subsequently diagnosed with pneumonia and exacerbation of COPD. He was started on antibiotics, bronchodilators, and steroids. Pulmonary was consultation and agreed with current plan of care. He is also found to have severe hypomagnesemia and dehydration. He had a rapid improvement by the day following admission. His shortness of breath had resolved, his wheezing had resolved, and his cough is greatly improved. He is feeling much better after his IV fluids. He was requesting discharge home. He felt as though he manages outpatient. His magnesium was replaced and he was subsequently discharged home in stable condition. His A1c was checked and was 6.8. He was lately hyperglycemic during hospitalization secondary to steroid use. He was discharged back home on his Amaryl as it was providing adequate control. Patient seen and examined at bedside. Denies shortness of breath, wheezing improved, no nausea, feeling much better. Antitussives according well and he is requesting prescription for at home. General: non toxic, no distress, appears at stated age Derm: no rashes, no lesions Head: atraumatic, normocephalic, symmetric Eyes: EOMI, no lid lag, anicteric sclera ENT: no post nasal drip, no thrush Mouth: no lip lesion, mucus membranes moist Cardiovascular: S1S2 reg, no murmur, positive posterior tibial pulse bilateral, Lungs: Faint Wwheeze right base, no rhonchi, no rales , no accessory muscle use Abdominal: soft, nontender to palpation, no guarding, no appreciable organomegaly Ext: no gross muscle atrophy, no edema, no contractures Neuro: CN II-XI grossly intact, no focal neuro deficits Psych: Alert, oriented, appropriate affect Pertinent Studies: CT chest done 12/06: Right lung increased opacity, right hilar soft tissue density decreased in size, lymph adenopathy resolved Patient Condition at Discharge: Good Plan - Discharge Summary New Discharge Prescriptions: New Benzocaine/Menthol Lozeng [Cepacol lozenge] 1 each MUCOUS MEM Q4HR PRN #60 lozenge PRN Reason: Sore Throat Benzonatate [Tessalon Perles] 100 mg PO TID PRN #60 cap PRN Reason: Cough diphenhydrAMINE [Benadryl] 25 mg PO DAILY PRN cap PRN Reason: Insomnia guaiFENesin-Coden 100-10MG/5ML [Robitussin AC] 5 ml PO Q4H PRN #20 dose PRN Reason: Cough Levofloxacin [Levaquin] 750 mg PO Q24H #7 tab predniSONE 0 mg PO DIRECTED #35 tab Continue HYDROcodone/APAP 10-325MG [[place] 10-325] 1 tab PO Q4H PRN PRN Reason: Moderate To Severe Pain Albuterol Inhaler [Ventolin Hfa Inhaler] 1 - 2 puff INHALATION RT-QID PRN PRN Reason: Shortness Of Breath Acetaminophen [Tylenol] 650 mg PO TID PRN PRN Reason: Mild Pain Pioglitazone [Actos] 15 mg PO QAM Discontinued Codeine Phosphate/Guaifenesin [Virtussin AC Liquid] 5 ml PO Q4H PRN PRN Reason: Cough Discharge Medication List Acetaminophen [Tylenol] 650 mg PO TID PRN 07/13/16 [History] Albuterol Inhaler [Ventolin Hfa Inhaler] 1 - 2 puff INHALATION RT-QID PRN [History] HYDROcodone/APAP 10-325MG [[place] 10-325] 1 tab PO Q4H PRN 07/13/16 [History] Pioglitazone [Actos] 15 mg PO QAM 12/06/16 [History] Benzocaine/Menthol Lozeng [Cepacol lozenge] 1 each MUCOUS MEM Q4HR PRN #60 lozenge 12/08/16 [Rx] Benzonatate [Tessalon Perles] 100 mg PO TID PRN #60 cap 12/08/16 [Rx] Levofloxacin [Levaquin] 750 mg PO Q24H #7 tab 12/08/16 [Rx] diphenhydrAMINE [Benadryl] 25 mg PO DAILY PRN cap 12/08/16 [Rx] guaiFENesin-Coden 100-10MG/5ML [Robitussin AC] 5 ml PO Q4H PRN #20 dose [Rx] predniSONE 0 mg PO DIRECTED #35 tab 12/08/16 [Rx] Follow up Appointment(s)/Referral(s): [facility], [NON-STAFF] - 1 Week Katelyn Harrington MD [Primary Care Provider] - 1-2 days (Patient to call Dr. Harrington's office Saturday morning to schedule follow up appointment. The office is closed at time of discharge.) Patient Instructions/Handouts: Benzonatate (By mouth), Prednisone (By mouth), Levofloxacin (By mouth), Dextromethorphan/Guaifenesin/Phenylephrine (By mouth), Benzocaine/Menthol (By mouth), COPD (Chronic Obstructive Pulmonary Disease) (DC) , Pneumonia (DC) Activity/Diet/Wound Care/Special Instructions: diabetic diet, activity as tolerated For the next 7 days use your inhaler 2 puffs 4 times daily. Discharge Disposition: HOME SELF-CARE Pending Studies Pending Results: Sputum culture
[2016-12-08] MEDS ORDERED: INSULIN DETEMIR 100 UNIT/ML 10 ML VIAL SQ SCH (21:00)
[2016-12-08] MEDS ORDERED: LEVOFLOXACIN 750 MG TAB PO SCH (23:00)
== END 2016-12-08 16:35 | disposition home or self-care (01) | DRG 190 ==
LOC: SUPCPDRO 21:43 → EC 21:43 → 5MS5E 23:50 → 5ONC 12-08 08:15
PROVIDERS: ADMIT Internal Medicine; ATTEND Internal Medicine
DX: J44.0 Chronic obstructive pulmonary disease with (acute) lower respiratory infection (principal); J18.9 Pneumonia, unspecified organism; J96.00 Acute respiratory failure, unspecified whether with hypoxia or hypercapnia; D61.810 Antineoplastic chemotherapy induced pancytopenia; C34.90 Malignant neoplasm of unspecified part of unspecified bronchus or lung; E11.65 Type 2 diabetes mellitus with hyperglycemia; E86.0 Dehydration; I10 Essential (primary) hypertension; J44.1 Chronic obstructive pulmonary disease with (acute) exacerbation; E83.42 Hypomagnesemia; F17.210 Nicotine dependence, cigarettes, uncomplicated; K21.0 Gastro-esophageal reflux disease with esophagitis; T38.0X5A Adverse effect of glucocorticoids and synthetic analogues, initial encounter; M19.90 Unspecified osteoarthritis, unspecified site; J02.9 Acute pharyngitis, unspecified; K21.9 Gastro-esophageal reflux disease without esophagitis; Z79.84 Long term (current) use of oral hypoglycemic drugs; Z96.649 Presence of unspecified artificial hip joint; Z88.4 Allergy status to anesthetic agent; Z80.0 Family history of malignant neoplasm of digestive organs
CPT/HCPCS: 36415; 71010; 71020; 71275; 80053; 82550; 82553; 82728; 83036; 83540; 83550; 83735; 83880; 84100; 84484; 85025; 85027; 85379; 85610; 85730; 87070; 87205; 93005; 94640; 96361; 96365; 96375; 99285

== ENCOUNTER → 2016-12-24 | Outpatient (CLI) | payer OTHER ==
[2016-12-24 14:37] LABS: Non-African American GFR(MDRD) >60 (>60 ml/min/1.73 sqM)
== END | disposition home or self-care (01) ==
LOC: LABWHC1 13:25
PROVIDERS: ATTEND Nurse Practitioner Family
DX: C34.2 Malignant neoplasm of middle lobe, bronchus or lung (principal)
CPT/HCPCS: 36415; 82565

== ENCOUNTER → 2016-12-25 | Outpatient (CLI) | payer OTHER ==
--- NOTE | 2016-12-25 15:37 | MR ---
EXAMINATION TYPE: MR brain wo/w con DATE OF EXAM: 12/25/2016 COMPARISON: 08/02/2016 HISTORY: malignant neoplasm of middle lobe TECHNIQUE: Multiplanar, multisequence images of the brain and brainstem is performed without and with IV contras t, utilizing 9.5 mL intravenous Gadavist . FINDINGS: Diffusion weighted images demonstrate no evidence of a recent infarct or other diffusion ab normality. There is no extra-axial fluid collection or significant white matter signal abnormality. The ventricular system and cisternal spaces are normal in size and appearance. The brain volume is age appropriate. Midline structures demonstrate normal morphology. The craniocervical junction appears within normal limits. Post contrast images demonstrate no abnormal enhancement. Findings suggest chronic sinusitis. IMPRESSION: 1. No acute intracranial abnormality identified. 2. Changes of moderate chronic sinusitis.
== END | disposition home or self-care (01) ==
LOC: RADMRIMAIN 12:39
PROVIDERS: ATTEND Radiology Radiation Oncology
DX: J32.9 Chronic sinusitis, unspecified (principal); C34.2 Malignant neoplasm of middle lobe, bronchus or lung
CPT/HCPCS: 70553; A9581

== ENCOUNTER → 2017-02-01 | Outpatient (CLI) | payer OTHER ==
[2017-02-01 14:01] LABS: Blood Urea Nitrogen 17 mg/dL (9-20); Non-African American GFR(MDRD) >60 (>60 ml/min/1.73 sqM)
--- NOTE | 2017-02-01 16:11 | CT ---
EXAMINATION TYPE: CT chest w con DATE OF EXAM: 02/01/2017 COMPARISON: 12/06/2016 HISTORY: chronic cough/hx lung ca CT DLP: 512 mGycm, Automated exposure control for dose reduction was used. CONTRAST: Performed injected with 100 mL of Omnipaque 300. TECHNIQUE: Axial images were obtained at 5 mm thick sections. Reconstructed images are reviewed on [employer] computer in the coronal plane. FINDINGS: Portion of the thyroid visualized is normal. Consolidation extends from the anterior lateral right apex towards the right hilum. There is a large consolidation at the right hilum. Air bronchograms and consolidation extending the right middle and r ight lower lobes. There appears to be some narrowing of the right main bronchus branch into the right middle and lower lobes. Findings are progressive from November 2016 and can be compatible with neoplas m. There is a 0.8 cm right paratracheal lymph node. Couple of additional small paratracheal lymph nodes are present. No enlarged mediastinal or hilar adenopathy is evident. The ascending aorta diameter at the level of the main pulmonary artery is 3.1 cm. The main pulmonary artery diameter at the bifurcation is 2.[address] sections are obtained through the upper abdomen. Abdomen is essentially unremarkable. IMPRESSIONS: 1. Worsening consolidation within the right upper perihilar and lower lung carmona which can be compat ible the patient's neoplasm. The mass at the right perihilar region may be narrowing the right middle and lower lobe bronchi.
== END | disposition home or self-care (01) ==
LOC: RADPROMAIN 13:05
PROVIDERS: ATTEND Internal Medicine Critical Care Medicine
DX: R91.8 Other nonspecific abnormal finding of lung field (principal)
CPT/HCPCS: 82565; 84520; 71260; Q9967; J1642

== ENCOUNTER → 2017-02-09 | Outpatient (CLI) | payer OTHER ==
--- NOTE | 2017-02-09 15:25 | PE ---
EXAMINATION TYPE: PET CT fusion skull to thigh DATE OF EXAM: 02/09/2017 COMPARISON: Prior PET/CT August 04, 2016. Prior chest CT February 01, 2017. HISTORY: Lung cancer progress study , completed chemotherapy November 2016. TECHNIQUE: Following the intravenous administration of 14.3 mCi of F-18 FDG, whole body images are p erformed from the skull base to the midthigh. Images are reviewed on the computer in the coronal, ax ial, and sagittal planes. Reconstructed rotating images are created on independent workstation and r eviewed on the computer. A localization and attenuation correction CT is performed in conjunction w ith the PET scan. SCAN: Subsequent Scan FINDINGS: SKULL BASE AND NECK: No suspicious hypermetabolic uptake is seen in the neck. CHEST, MEDIASTINUM, AND HILAR REGION: There is persistent abnormal mass or soft tissue in the right h ilar region with mediastinal invasion, this is diminished in size from prior measuring roughly 2.8 x 2.6 cm on axial image 86 versus 5.8 x 5.1 cm on prior study image 84. There is however some new poste rior curvilinear extension. Max SUV on current study is 4.51 . Persistent prominent pericarinal lymph node on axial image 85 measuring 1.4 x 1.1 cm. Mediastinal lym ph nodes nodes are felt diminished in size from prior study. No suspicious hypermetabolic uptake is e vident. There is increasing ill-defined peripheral infiltrate in the right upper lobe and apex, area of more nodular infiltrate on prior study image 75 is not clearly seen on current study. Some lateral right u pper lobe pleural thickening is now present. Max SUV is 3.38. ABDOMEN AND PELVIS: No suspicious hypermetabolic uptake is seen in the abdomen or pelvis. OSSEOUS STRUCTURES: No suspicious hypermetabolic uptake is seen in osseous structures. OTHER CT: There is right internal jugular Mediport catheter which is coiled, tip is in internal jugul ar vein before brachiocephalic confluence. Metallic hardware from bilateral hip arthroplasties is seen, this causes streak artifact limiting [place] luation for pelvic structures. There is multilevel spurring in the spine. There is facet arthropathy in lower lumbar levels. Normal-appearing appendix is incidentally redemonstrated from cecum posteriorly. IMPRESSION: Positive response to treatment in right hilar mass or neoplasm and mediastinal adenopath y as detailed above. Some residual active tumor right hilar level is still felt present.
== END ==
LOC: RADPETMAIN 08:36
PROVIDERS: ATTEND Internal Medicine Hematology & Oncology
DX: C34.91 Malignant neoplasm of unspecified part of right bronchus or lung (principal)
CPT/HCPCS: 78815; A9552

== ENCOUNTER → 2017-03-12 | Outpatient (CLI) | payer OTHER ==
--- NOTE | 2017-03-12 15:17 | MR ---
PRE AND POSTCONTRAST ENHANCED MRI OF THE BRAIN: CLINICAL HISTORY: Lung carcinoma CONTRAST: 10 ML Multihance COMPARISON: 12/25/2016 Multiplanar and multispin-echo imaging of the brain was performed both before and after the administr ation of contrast. The ventricles, basal cisterns and sulci overlying the cerebral convexities are within normal limits. There is no evidence for midline shift or mass effect. Acute intracranial hemorrhage or extra-axial collection is not evident. There are no abnormal areas of increased or decreased signal intensity within the brain parenchyma. Following contrast administration, there is no evidence for pathologic enhancement or enhancing mass. Chronic paranasal sinusitis. Mastoid air cells are well-aerated. IMPRESSION: Unremarkable pre and postcontrast enhanced MRI of the brain.
== END | disposition home or self-care (01) ==
LOC: RADMRIMAIN 12:22
PROVIDERS: ATTEND Radiology Radiation Oncology
DX: C34.2 Malignant neoplasm of middle lobe, bronchus or lung (principal); F17.210 Nicotine dependence, cigarettes, uncomplicated; Z41.8 Encounter for other procedures for purposes other than remedying health state; Z29.8 Encounter for other specified prophylactic measures
CPT/HCPCS: 70553; A9577

== ENCOUNTER → 2017-05-18 | Outpatient (CLI) | payer OTHER | END | disposition home or self-care (01) | LOC: LABWHC1 11:56 | PROVIDERS: ATTEND Radiology Radiation Oncology | DX: C34.2 Malignant neoplasm of middle lobe, bronchus or lung (principal); F17.210 Nicotine dependence, cigarettes, uncomplicated; Z29.8 Encounter for other specified prophylactic measures; Z41.8 Encounter for other procedures for purposes other than remedying health state | CPT/HCPCS: 36415; 82565 ==

== ENCOUNTER → 2017-05-18 | Outpatient (CLI) | payer OTHER ==
--- NOTE | 2017-05-19 14:58 | PE ---
EXAMINATION TYPE: PET CT fusion skull to thigh DATE OF EXAM: 05/18/2017 COMPARISON: CT chest 02/01/2017 Prior PET/CT: 02/09/2017, PET/CT 08/04/2016 HISTORY: Lung cancer TECHNIQUE: Following the intravenous administration of 14.69 mCi of F-18 FDG, whole body images are performed from the skull base to the midthigh. Images are reviewed on the computer in the coronal, a xial, and sagittal planes. Reconstructed rotating images are created on independent workstation and reviewed on the computer. A localization and attenuation correction CT is performed in conjunction with the PET scan. DLP: 519.68 mGycm SCAN: Subsequent scan Blood glucose: 99 mg/dL Average Mediastinum SUV: 1.69 Average Liver SUV: 2.63 FINDINGS: NECK: No abnormal uptake THORAX: There is a consolidation in the right upper lobe periphery which has some posterior extension as well from the right hilum. This has elevated SUV value measuring 5.65 and can be compatible with the patient's neoplasm. No suspicious uptake within the mediastinum is evident. ABDOMEN: No abnormal uptake PELVIS: No abnormal uptake OSSEOUS STRUCTURES: No abnormal uptake LOCALIZATION CT: The ascending thoracic aorta at the level the main pulmonary artery is 2.7 cm. The m ain pulmonary artery at the bifurcation is 3.4 cm. COMPARISON: Previous PET posterior to the right hilum had uptake of 4.2. Right hilar uptake is dimini shed which is currently 4.01. This right upper lobe consolidation however has developed from 7. The area posterior to the hilar region on the current exam is approximately 3.3 SUV, which is dimi nished from the previous examination. The more peripheral upper lobe consolidation has developed from 02/09/2017. IMPRESSION: 1. Developing consolidation right peripheral upper lobe with an SUV value of 5.65 2. Area posterior to the right hilum has diminished SUV compared to the previous examination of 2016. 3. The right hilar uptake has diminished slightly over the interval. 4. No new distant metastatic lesions.
== END | disposition home or self-care (01) ==
LOC: RADPETMAIN 08:41
PROVIDERS: ATTEND Internal Medicine Hematology & Oncology
DX: C34.91 Malignant neoplasm of unspecified part of right bronchus or lung (principal); J18.1 Lobar pneumonia, unspecified organism
CPT/HCPCS: 78815; A9552

== ENCOUNTER → 2017-05-20 | Outpatient (CLI) | payer OTHER ==
--- NOTE | 2017-05-20 13:57 | MR ---
PRE AND POSTCONTRAST ENHANCED MRI OF THE BRAIN: CLINICAL HISTORY: Lung cancer CONTRAST: 8 cc Gadavist COMPARISON: 03/04/2017 Multiplanar and multispin-echo imaging of the brain was performed both before and after the administr ation of contrast. The ventricles, basal cisterns and sulci overlying the cerebral convexities are within normal limits. There is no evidence for midline shift or mass effect. Acute intracranial hemorrhage or extra-axial collection is not evident. There are no abnormal areas of increased or decreased signal intensity within the brain parenchyma. Following contrast administration, there is no evidence for pathologic enhancement or enhancing mass. The paranasal sinuses and mastoid air cells are well-aerated. IMPRESSION: Unremarkable pre and postcontrast enhanced MRI of the brain.
== END | disposition home or self-care (01) ==
LOC: RADMRIMAIN 12:48
PROVIDERS: ATTEND Radiology Radiation Oncology
DX: C34.2 Malignant neoplasm of middle lobe, bronchus or lung (principal); Z41.8 Encounter for other procedures for purposes other than remedying health state; Z29.8 Encounter for other specified prophylactic measures; F17.210 Nicotine dependence, cigarettes, uncomplicated
CPT/HCPCS: 70553; A9581

== ENCOUNTER → 2017-06-27 | Outpatient (CLI) | payer OTHER ==
[2017-06-27 12:09] LABS: Blood Urea Nitrogen 15 mg/dL (9-20)
--- NOTE | 2017-06-27 13:36 | CT ---
EXAMINATION TYPE: CT chest w con DATE OF EXAM: 06/27/2017 COMPARISON: PET scan to 318, CT scan 02/01/2017 HISTORY: Observe for mets. History small cell lung cancer. CT DLP: 738 mGycm Automated exposure control for dose reduction was used. CONTRAST: CT scan of the chest is performed with IV Contrast, patient injected with 100 mL of Omnipaque 300. FINDINGS: LUNGS: Consolidation extends from the anterior lateral right apex towards the right hilum. Air bronch ograms and consolidation extending the right middle and right lower lobes. There appears to be some n arrowing of the right main bronchus branch into the right middle and lower lobes. Findings are progre ssive from previous. Findings compatible with neoplasm. There is a bleb in the left upper lobe noted. Consolidation seen posteriorly within the right upper lobe now measures 3.7 x 1.7 cm and appears sta ble. MEDIASTINUM:The ascending thoracic aorta at the level the main pulmonary artery is 2.7 cm. The main p ulmonary artery at the bifurcation is 3.4 cm. Right min stable peribronchial thickening and soft tiss ue thickness is again noted. Tiny pericardial effusion noted. Persistent right hilar adenopathy is no annalise similar in appearance to the prior exam. The size and morphology. OTHER: Hypertrophic and degenerative change of the spine noted. Mediport catheter noted. Thickening of the left adrenal gland stable. IMPRESSION: 1. Progressive consolidation and density involving the right hilum extending into the right lung comp atible with the recent PET/CT findings suggestive of neoplasm.
== END | disposition home or self-care (01) ==
LOC: RADPROMAIN 11:21
PROVIDERS: ATTEND Internal Medicine Hematology & Oncology
DX: C34.91 Malignant neoplasm of unspecified part of right bronchus or lung (principal); R91.8 Other nonspecific abnormal finding of lung field
CPT/HCPCS: 82565; 84520; 71260; Q9967; J1642

== ENCOUNTER → 2017-07-18 | Outpatient (CLI) | payer OTHER ==
[2017-07-18 10:37] LABS: Blood Urea Nitrogen 28 mg/dL (9-20)
--- NOTE | 2017-07-18 11:50 | CT ---
EXAMINATION TYPE: CT chest w con DATE OF EXAM: 07/18/2017 COMPARISON: NONE HISTORY: Small cell carcinoma of lung CT DLP: 788 mGycm. Automated Exposure Control for Dose Reduction was Utilized. TECHNIQUE: CT scan of the thorax is performed following with IV Contrast, patient injected with 100 mL of Isovue 300. FINDINGS: LUNGS: Right upper lung varicose bronchiectasis, right upper lung wedge-shaped consolidation likely r epresenting postobstructive atelectasis, and medial right lung wedge shaped consolidation also likely representing atelectasis emanating from the right suprahilar lung to the right upper lobe pleural clifford rface are similar in comparison to the prior exam of 06/27/2017. The patient's known primary small leatha l carcinoma may be located and approximately and creating obstruction, within the consolidation or wi thin the right hilum is there is a right hilar mass measuring approximately 3.1 x 2.6 cm on series 3 image 22, progressed from the prior exam where this measured approximately 2.1 x 1.8 cm. This could r epresent the primary neoplasm and/or adenopathy. An unchanged 3 mm right upper lobe pulmonary nodule seen anteriorly on series 4 image 20. Additionally a 2 mm pulmonary nodule within the superior segmen t of the right lower lobe is present on series 4 image 25. Peribronchial thickening is seen centrally within the entirety of the right lung. Solitary left upper lobe bleb is again identified. Minimal left basilar subsegmental atelectasis and interfissural fluid are noted. MEDIASTINUM: Right hilar mass and/or adenopathy as described above. No new additional enlarged lymph nodes are seen within the mediastinum. Right superior paratracheal lymph node is nonenlarged and unch anged from the prior. No pericardial effusion is seen. Right-sided Mediport terminates in the superi or vena cava. OTHER: There is stable thickening of the left adrenal gland. An indeterminate 9 mm left lower pole re nal lesion is seen. Multilevel mild degenerative changes of the thoracic spine are present. IMPRESSION: Right suprahilar/hilar mass consisting of either primary neoplasm and/or adenopathy has e nlarged in the interim now more conspicuous measuring 3.1 x 2.6 cm and previously demonstrated as onl y thickening measuring 2.1 x 1.8 cm. Degree of postobstructive right upper lobe multifocal atelectasi s and varicose bronchiectasis are unchanged from the prior of 06/27/2017. However given progression of the right suprahilar/hilar mass findings represent progression of disease. 2. Additionally there are 2 subcentimeter right-sided pulmonary nodules (2 mm and 3 mm). 3. Indeterminate 9 mm left lower pole renal lesion.
== END | disposition home or self-care (01) ==
LOC: RADPROMAIN 10:08
PROVIDERS: ATTEND Internal Medicine Critical Care Medicine
DX: C34.91 Malignant neoplasm of unspecified part of right bronchus or lung (principal); J98.11 Atelectasis; J47.9 Bronchiectasis, uncomplicated
CPT/HCPCS: 82565; 84520; 71260; Q9967

== ENCOUNTER → 2017-08-14 | Outpatient (CLI) | payer OTHER ==
--- NOTE | 2017-08-14 13:13 | MR ---
EXAMINATION TYPE: MR brain wo/w con DATE OF EXAM: 08/14/2017 COMPARISON: 05/20/2017, 03/12/2017 HISTORY: Lung CA, mets TECHNIQUE: Multiplanar, multisequence images of the brain and brainstem is performed without and with IV contras t, utilizing 10 mL intravenous Gadavist . FINDINGS: Diffusion weighted images demonstrate no evidence of a recent infarct or other diffusion ab normality. The ventricular system and cisternal spaces are normal in size and appearance. The brain volume is age appropriate. Midline structures demonstrate normal morphology. The craniocervical junction appears within normal limits. Post contrast images demonstrate no abnormal enhancement. The dural venous sinuses appear pa tent. Next Changes of chronic sinusitis noted. Degree of dural enhancement stable from previous exam. White matter: There are 2 less than 5 mm areas of abnormal signal within the right cerebral hemispher e. No callosal or enhancing lesions. No lesions perpendicular to ventricular system. IMPRESSION: 1. No diagnostic evidence to suggest metastases. 2. Chronic sinusitis. 3. Minimal nonspecific white matter changes
== END | disposition home or self-care (01) ==
LOC: RADMRIMAIN 12:02
PROVIDERS: ATTEND Radiology Radiation Oncology
DX: C34.2 Malignant neoplasm of middle lobe, bronchus or lung (principal); F17.210 Nicotine dependence, cigarettes, uncomplicated; Z41.8 Encounter for other procedures for purposes other than remedying health state; Z29.8 Encounter for other specified prophylactic measures
CPT/HCPCS: 70553; A9581

== ENCOUNTER → 2017-09-20 | Outpatient (CLI) | payer OTHER ==
[2017-09-20 11:18] LABS: Blood Urea Nitrogen 14 mg/dL (9-20)
--- NOTE | 2017-09-20 21:33 | CT ---
EXAMINATION TYPE: CT chest w con DATE OF EXAM: 09/20/2017 COMPARISON: 07/18/2017 HISTORY: Lung CA follow up, history of small cell carcinoma CT DLP: 692 mGycm, Automated exposure control for dose reduction was used. CONTRAST: Performed injected with 100 mL of Isovue 300. TECHNIQUE: Axial images were obtained at 5 mm thick sections. Reconstructed images are reviewed on [employer] computer in the coronal plane. FINDINGS: Portion of the thyroid visualized is normal. Subglottic airway appears normal. Small superior mediastinal lymph node is present. Couple small pretracheal lymph nodes are present. C ouple of small aortopulmonic window lymph nodes are present. There is a dense consolidation in the right suprahilar region. Air bronchograms are present. This ext ends to the pleural margin. Findings are compatible with the patient's known lung cancer. The hilar d ensity just below the right main pulmonary artery and above the right bronchus currently measures orion roximately 2.3 x 2.9 cm. This is compared to the previous fullness in this region measuring 2.6 x 3.1 cm in July. The 3 mm density in the anterior right apex currently measures 0.4 cm. Series 4 image 20. There is a pneumatocele in the left upper lung field The ascending aorta diameter at the level of the main pulmonary artery is 2.9 cm. The main pulmonary artery diameter at the bifurcation is 2.[address] sections are obtained through the upper abdomen. Abdomen is essentially unremarkable. The appearance of the left adrenal gland is stable. IMPRESSIONS: 1. Wedge opacity with air bronchograms right upper lung. The perihilar masslike area has diminished i n size.
== END | disposition home or self-care (01) ==
LOC: RADPROMAIN 10:47
PROVIDERS: ATTEND Internal Medicine Hematology & Oncology
DX: C34.91 Malignant neoplasm of unspecified part of right bronchus or lung (principal)
CPT/HCPCS: 82565; 84520; 71260; Q9967

== ENCOUNTER → 2017-11-11 | Outpatient (CLI) | payer OTHER ==
--- NOTE | 2017-11-11 22:19 | MR ---
EXAMINATION TYPE: MR brain wo/w con DATE OF EXAM: 11/11/2017 COMPARISON: Most recent MRI brain August 14, 2017 HISTORY: Metastatic Small cell lung ca, progress study. Symptoms of bilateral hearing loss per patien t. TECHNIQUE: Multiplanar, multisequence images of the brain and brainstem is performed without and with IV contras t, utilizing 10 mL intravenous Gadavist . FINDINGS: Diffusion weighted images demonstrate no evidence of a recent infarct or other diffusion ab normality. There is no extra-axial fluid collection or new significant white matter signal abnormali ty. 1-2 small white matter lesions right frontoparietal deep white matter redemonstrated axial image 22 seen best FLAIR sequence. The ventricular system and cisternal spaces are normal in size and appe arance. The brain volume is age appropriate. Midline structures demonstrate normal morphology. The craniocervical junction appears within normal limits. Post contrast images demonstrate no new areas of parenchymal enhancement. Stable symmetric f airly linear dural enhancement noted. The dural venous sinuses appear patent. The visualized sinuses are clear on today's study and the globes are intact. IMPRESSION: No new suspicious enhancing intraparenchymal foci to suggest metastatic disease. No signi ficant change from recent MRI.
== END | disposition home or self-care (01) ==
LOC: RADMRIMAIN 12:47
PROVIDERS: ATTEND Radiology Radiation Oncology
DX: C34.2 Malignant neoplasm of middle lobe, bronchus or lung (principal); F17.210 Nicotine dependence, cigarettes, uncomplicated
CPT/HCPCS: 82565; 70553; J1642; A9581

== ENCOUNTER → 2017-12-28 | Outpatient (CLI) | payer OTHER ==
--- NOTE | 2018-01-01 17:06 | PE ---
Nuclear medicine PET/CT HISTORY: Lung carcinoma, subsequent Patient received 13.9 mCi F-18 FDG intravenously in delayed scanning was performed from the skull bas e to the mid thighs. An attenuation correction CT, localization CT scan was performed. Correlation to prior nuclear medicine PET/CT 05/18/2017 Neck and chest: There is abnormal pleural thickening along the right lateral chest margin with consol idation, air bronchograms similar in distribution to prior exam and extends towards the mediastinum a nd right hilar region as on previous, SUV 3.4, decreased in activity from prior exam. At the right hi lar region uptake is also decreased compared to prior head only measures approximately 2.2. No eviden t mediastinal, axillary, or hilar adenopathy. Port-A-Cath is present in the right pectoral region via right jugular approach and show some redundancy, distal tip is within the superior vena cava. Abdomen pelvis: No evident adrenal mass. No retroperitoneal adenopathy or ascites. No suspicious hype rmetabolic uptake. No pelvic adenopathy evident. Osseous structures: Bilateral hip arthroplasty. Degenerative disc change and facet arthropathy at the lower lumbar spine. No suspicious hypermetabolic uptake. No other significant interval changes. IMPRESSION: Hypermetabolic uptake is mildly reduced as compared to prior exam within the right lung a s described.
== END | disposition home or self-care (01) ==
LOC: RADPETMAIN 16:57
PROVIDERS: ATTEND Internal Medicine Hematology & Oncology
DX: C34.81 Malignant neoplasm of overlapping sites of right bronchus and lung (principal); R91.8 Other nonspecific abnormal finding of lung field
CPT/HCPCS: 78815; A9552

== ENCOUNTER → 2018-02-10 | Outpatient (CLI) | payer OTHER ==
--- NOTE | 2018-02-10 13:11 | MR ---
EXAMINATION TYPE: MR brain wo/w con DATE OF EXAM: 02/10/2018 COMPARISON: Prior brain MRI dated 11/11/2017 HISTORY: Malignant neoplasm of middle lobe, bronchus TECHNIQUE: Multiplanar, multisequence images of the brain and brainstem is performed without and with IV contras t, utilizing 10 mL intravenous Gadavist . FINDINGS: Diffusion weighted images demonstrate no evidence of a recent infarct or other diffusion ab normality. There is no extra-axial fluid collection or significant interval change in white matter s ignal abnormality. The ventricular system and cisternal spaces are normal in size and appearance. T he brain volume is age appropriate. Midline structures demonstrate normal morphology. The craniocervical junction appears within normal limits. Post contrast images demonstrate no change in enhancement, dural enhancement again noted. Th e dural venous sinuses appear patent. The visualized sinuses are remarkable for mucoperiosteal thicke fidelia in the maxillary sinuses, ethmoid air cells and frontal sinus and the globes are intact. IMPRESSION: Essentially stable brain MR. No suspicious enhancing mass evident.
== END | disposition home or self-care (01) ==
LOC: RADMRIMAIN 09:53
PROVIDERS: ATTEND Radiology Radiation Oncology
DX: C34.2 Malignant neoplasm of middle lobe, bronchus or lung (principal); F17.210 Nicotine dependence, cigarettes, uncomplicated; Z41.8 Encounter for other procedures for purposes other than remedying health state; Z29.8 Encounter for other specified prophylactic measures
CPT/HCPCS: 82565; 36415; 70553; J1642; A9585

== ENCOUNTER → 2018-05-19 | Outpatient (CLI) | payer OTHER ==
--- NOTE | 2018-05-19 16:03 | CT ---
EXAMINATION TYPE: CT chest w con DATE OF EXAM: 05/19/2018 COMPARISON: PET/CT dated 12/28/[address] chest dated 12/30/2017 HISTORY: lung ca, observe for mets CT DLP: 707 mGycm. Automated Exposure Control for Dose Reduction was Utilized. TECHNIQUE: CT scan of the thorax is performed following with IV Contrast, patient injected with 100 mL of Isovue 300. FINDINGS: LUNGS: There is a similar appearing right upper lobe consolidation with right-sided pleural thickenin g and cylindrical bronchiectasis contiguous with the right suprahilar region. Peribronchial cuffing a nd right hilar soft tissue density remain. When measured at a similar location the previously seen ri ght apical pleural-based thickening on image 12 measures approximately 6.2 x 3.1 cm as opposed to the prior of 7.5 x 4.0 cm, slightly decreased in size given slight change in positioning in comparison t o the prior. No new pulmonary nodules or masses are identified. Minimal left basilar atelectasis is n oted multifocally. MEDIASTINUM: There is a right-sided Mediport terminating in the superior vena cava. No new suspicious mediastinal adenopathy is seen. Soft tissue density in the right suprahilar such as on image 19 is s imilar to the prior. No pericardial effusion is seen. OTHER: Mild degree hepatic steatosis is noted. Mild multilevel degenerative changes of the spine are seen. IMPRESSION: Overall similar appearance of the right perihilar and upper lobe neoplasm with focal righ t apical pleural-based thickening and cylindrical bronchiectasis although there is slight decrease in size of the pleural-based component. No new evidence of metastasis within the chest. No new supracla vicular contralateral adenopathy.
== END | disposition home or self-care (01) ==
LOC: RADPROMAIN 13:31
PROVIDERS: ATTEND Internal Medicine Hematology & Oncology
DX: C34.91 Malignant neoplasm of unspecified part of right bronchus or lung (principal); J47.9 Bronchiectasis, uncomplicated; Z88.4 Allergy status to anesthetic agent
CPT/HCPCS: 71260; J1642; Q9967

== ENCOUNTER → 2018-07-24 | Outpatient (CLI) | payer OTHER ==
--- NOTE | 2018-07-24 12:15 | MR ---
EXAMINATION TYPE: MR brain wo/w con DATE OF EXAM: 07/24/2018 COMPARISON: 02/10/2018 HISTORY: lung ca TECHNIQUE: Multiplanar, multisequence images of the brain and brainstem is performed without and with IV contras t, utilizing 10 mL intravenous Gadavist . FINDINGS: Diffusion weighted images demonstrate no evidence of a recent infarct or other diffusion ab normality. There is mild generalized degenerative change. Periventricular focal areas of abnormal sig nal the white matter microvascular ischemia. Midline structures demonstrate normal morphology. The craniocervical junction appears within normal limits. Post contrast images demonstrate no abnorm al enhancement. The dural venous sinuses appear patent. Changes of chronic sinusitis are noted. IMPRESSION: 1. No diagnostic evidence of metastases. 2. Nonspecific white matter changes most typical of remote microvascular ischemia.
== END | disposition home or self-care (01) ==
LOC: RADMRIMAIN 09:57
PROVIDERS: ATTEND Radiology Radiation Oncology
DX: C34.2 Malignant neoplasm of middle lobe, bronchus or lung (principal); R90.89 Other abnormal findings on diagnostic imaging of central nervous system; F17.210 Nicotine dependence, cigarettes, uncomplicated; Z41.8 Encounter for other procedures for purposes other than remedying health state; Z29.8 Encounter for other specified prophylactic measures
CPT/HCPCS: 70553; A9585

== ENCOUNTER → 2018-08-21 | Outpatient (CLI) | payer OTHER ==
--- NOTE | 2018-08-21 11:04 | XR ---
EXAMINATION TYPE: XR hand complete LT DATE OF EXAM: 08/21/2018 COMPARISON: NONE HISTORY: Pain and swelling TECHNIQUE: Three views are submitted. FINDINGS: The osseous structures are intact. There is narrowing of the fifth DIP joint and there is increased s clerosis involving the waist of the scaphoid. IMPRESSION: 1. No acute displaced fracture, however, there is increased density along the waist of the scaphoid. Nondisplaced fracture debris in the differential diagnosis. Correlate with point tenderness. If there is point tenderness CT of the wrist would be recommended.
== END | disposition home or self-care (01) ==
LOC: RADXRMAIN 10:19
PROVIDERS: ATTEND Internal Medicine Hematology & Oncology
DX: M85.842 Other specified disorders of bone density and structure, left hand (principal); D45 Polycythemia vera; E83.19 Other disorders of iron metabolism; C34.91 Malignant neoplasm of unspecified part of right bronchus or lung; M12.9 Arthropathy, unspecified

== ENCOUNTER → 2018-09-23 | Outpatient (CLI) | payer OTHER ==
--- NOTE | 2018-09-23 14:43 | CT ---
EXAMINATION TYPE: CT chest w con DATE OF EXAM: 09/23/2018 COMPARISON: Prior chest CT May 19, 2018 and older CTs. Prior PET/CT December 28, 2017. HISTORY: Follow up scan per patient. History of lung cancer diagnosed August 2016 completed treatment in May 2017. CT DLP: 605 mGycm. Automated Exposure Control for Dose Reduction was Utilized. TECHNIQUE: CT scan of the thorax is performed following with IV Contrast, patient injected with 100 mL of Isovue 300. FINDINGS: LUNGS: There is stable right suprahilar triangular shaped consolidation with air bronchograms with clifford perior retraction of the right hilum seen best axial image 17 and coronal image 49 not significantly changed from most recent studies. Superior lateral pleural thickening near axial image 14 is redemons trated and felt stable. There is persistent right hilar consolidation and/or scarring felt fairly sta ble inferiorly near axial image 26. No new suspicious nodules or masses. There is patchy lateral left basilar linear scarring redemonstrated. Small bleb left upper lobe axial image 19 is again seen. MEDIASTINUM: There are no new greater than 1 cm hilar or mediastinal lymph nodes. No cardiomegaly o r pericardial effusion is seen. OTHER: Some straightening of thoracic spine with mild to moderate multilevel spurring is redemonstrat ed. There is stable right internal jugular Mediport catheter. IMPRESSION: Treated right-sided lung neoplasm redemonstrated. No new suspicious mass or adenopathy to suggest recurrent active disease.
== END | disposition home or self-care (01) ==
LOC: RADPROMAIN 12:49
PROVIDERS: ATTEND Internal Medicine Critical Care Medicine
DX: R91.8 Other nonspecific abnormal finding of lung field (principal); Z85.118 Personal history of other malignant neoplasm of bronchus and lung
CPT/HCPCS: 71260; J1642; Q9967

== ENCOUNTER → 2019-01-28 | Outpatient (CLI) | payer OTHER ==
--- NOTE | 2019-02-03 11:35 | MR ---
EXAMINATION TYPE: MR brain wo/w con DATE OF EXAM: 01/28/2019 COMPARISON: 07/24/2018 HISTORY: Malignant neoplasm lung, Z 41.8 CONTRAST: Performed utilizing 10 mL intravenous Gadavist gadolinium contrast. TECHNIQUE: Multiplanar, multiecho imaging on a 3.0 Sharon magnet is performed through the brain. Stud y is performed within 24 hours of arrival to the hospital. The craniovertebral junction is normal. The pituitary is normal. Diffusion-weighted imaging is performed. No abnormal hyperintensity is present to suggest an acute i ntracranial infarct or acute ischemic change. Patchy periventricular white matter hyperintensities are present, likely on the basis of chronic whit e matter ischemic change. Ventricles and sulci are appropriate for the patient age. No abnormal enhancement is evident. No suspicious nodules or changes suggest metastatic disease. IMPRESSIONS: 1. Chronic appearing periventricular white matter ischemic changes. 2. No suspicious metastatic disease evident
== END | disposition home or self-care (01) ==
LOC: RADMRIMAIN 10:49
PROVIDERS: ATTEND Radiology Radiation Oncology
DX: R90.82 White matter disease, unspecified (principal); C34.2 Malignant neoplasm of middle lobe, bronchus or lung; Z41.8 Encounter for other procedures for purposes other than remedying health state; Z29.8 Encounter for other specified prophylactic measures; F17.210 Nicotine dependence, cigarettes, uncomplicated
CPT/HCPCS: 70553; A9585

== ENCOUNTER → 2019-03-19 | Outpatient (CLI) | payer OTHER ==
[2019-03-19 10:56] LABS: African American GFR (CKD) >90 (>60 ml/min/1.73 sqM); Blood Urea Nitrogen 13 mg/dL (9-20); Non-African American GFR(CKD) >90 (>60 ml/min/1.73 sqM)
--- NOTE | 2019-03-19 11:54 | CT ---
EXAMINATION TYPE: CT chest w con DATE OF EXAM: 03/19/2019 COMPARISON: 09/23/2018 HISTORY: Follow up to lung CA CT DLP: 642 mGycm, Automated exposure control for dose reduction was used. CONTRAST: Performed injected with 100 mL of Isovue 300. TECHNIQUE: Axial images were obtained at 5 mm thick sections. Reconstructed images are reviewed on [employer] computer in the coronal plane. FINDINGS: Portion of the thyroid visualized is normal. There is stable right apical thickening which extends to the right hilum. No enlarged mediastinal or hilar adenopathy is evident. The ascending aorta diameter at the level o f the main pulmonary artery is 2.6 cm. The main pulmonary artery diameter at the bifurcation is [address] sections are obtained through the upper abdomen. Abdomen is essentially unremarkable. IMPRESSIONS: 1. Stable appearance of right apical and right hilar opacities. 2. No suspicious new changes to suggest recurrence or metastatic lung cancer
== END ==
LOC: RADPROMAIN 10:20
PROVIDERS: ATTEND Internal Medicine Hematology & Oncology
DX: C34.91 Malignant neoplasm of unspecified part of right bronchus or lung (principal); R91.8 Other nonspecific abnormal finding of lung field
CPT/HCPCS: 82565; 84520; 71260; J1642; Q9967

== ENCOUNTER → 2019-07-16 | Outpatient (CLI) | payer OTHER ==
--- NOTE | 2019-07-16 17:43 | MR ---
EXAMINATION TYPE: MR brain wo/w con DATE OF EXAM: 07/16/2019 COMPARISON: 01/28/2019 HISTORY: F/U CA, NRG protocol CONTRAST: Performed utilizing 10 mL intravenous Gadavist gadolinium contrast. TECHNIQUE: Multiplanar, multiecho imaging on a 3.0 Sharon magnet is performed through the brain. Stud y is performed within 24 hours of arrival to the hospital. Exam is limited due to patient coughing du ring the exam. The craniovertebral junction is normal. The pituitary is normal. Diffusion-weighted imaging is performed. No abnormal hyperintensity is present to suggest an acute i ntracranial infarct or acute ischemic change. There is periventricular white matter hyperintensity, most likely on the basis of chronic white matte r ischemic change. Ventricles and sulci are appropriate for the patient age. Postcontrast imaging is reviewed. Motion artifact is present in the axial plane causing limitation. N o suspicious areas of enhancement are evident. IMPRESSIONS: 1. No suspicious areas to suggest metastatic disease. Exam appears stable from 01/28/2019.
== END | disposition home or self-care (01) ==
LOC: RADMRIMAIN 14:03
PROVIDERS: ATTEND Radiology Radiation Oncology
DX: Z41.8 Encounter for other procedures for purposes other than remedying health state (principal); Z29.8 Encounter for other specified prophylactic measures; C34.2 Malignant neoplasm of middle lobe, bronchus or lung; F17.210 Nicotine dependence, cigarettes, uncomplicated
CPT/HCPCS: 70553; A9585

== ENCOUNTER → 2019-10-13 | Outpatient (CLI) | payer OTHER ==
[2019-10-13 14:44] LABS: African American GFR (CKD) >90 (>60 ml/min/1.73 sqM); Blood Urea Nitrogen 14 mg/dL (9-20); Non-African American GFR(CKD) >90 (>60 ml/min/1.73 sqM)
--- NOTE | 2019-10-13 19:16 | CT ---
EXAMINATION TYPE: CT chest w con DATE OF EXAM: 10/13/2019 COMPARISON: 03/19/2019 and 09/23/2018 HISTORY: 49-year-old male Z03.89, Lung cancer, observe for mets. TECHNIQUE: Contiguous axial scanning of the chest after the administration of 100ml mL of Isovue 300. Coronal/sagittal reconstructions performed. CT DLP: 488.6mGycm. Automatic exposure control utilized for a dose reduction. FINDINGS: Right anterior chest wall injection port with catheter tip at the mid SVC level. Heart normal size without pericardial effusion. Mildly aneurysmal aortic root at 4.0 cm. Conventional arch vessel branching anatomy. No thoracic lymphadenopathy by CT size criteria. Stable soft tissue encasement of the right hilum with volume loss and chronic consolidation extending along the right suprahilar region up to the posterior apex and also down along the central aspect of the right lower lobe. No new suspicious developing nodularity or abnormal soft tissue density is identified. Mild emphysematous change. Some strandy atelectasis at the left base. Tiny 3 mm right mid lung pulmon jewel nodule, axial image 26 and coronal image 58 is unchanged back to 09/23/2018 (see old coronal image 49). Unchanged mild nodular thickening left adrenal gland. Bones: Costovertebral joint osteoarthrosis along the left side of the upper thorax anterior and plate spondylosis lower thoracic spine. No osseous destructive process. IMPRESSION: Stable posttreatment change with right hilar soft tissue encasement and volume loss and consolidation extending up to the right apex and centrally in the right lower lobe. No new mass or lymphadenopathy is identified to suggest recurrence.
== END | disposition home or self-care (01) ==
LOC: RADPROMAIN 13:42
PROVIDERS: ATTEND Internal Medicine Hematology & Oncology
DX: C34.91 Malignant neoplasm of unspecified part of right bronchus or lung (principal); Z88.4 Allergy status to anesthetic agent; Z98.890 Other specified postprocedural states
CPT/HCPCS: 82565; 84520; 71260; 36415; J1642; Q9967

== ENCOUNTER → 2019-11-05 | Outpatient (CLI) | payer OTHER ==
--- NOTE | 2019-11-05 12:16 | US ---
EXAMINATION TYPE: US thyroid st tissue head/neck DATE OF EXAM: 11/05/2019 COMPARISON: NONE CLINICAL HISTORY: C34.90 Lung Ca, R59.9 swollen lymph nodes. patient does not feel anything but state s doctor felt palp on the left side of neck submandibular region. FINDINGS: Soft tissue scan produces normal appearing lymph node = 0.9 x 0.4 x 0.5cm with fatty hilum. No abnorm laity noted. IMPRESSION: There is a 9 x 5 x 4 mm nodule corresponding the palpable abnormality with a hyperechoic center likel y related to a small lymph node. Short-term follow-up could be obtained for resolution.
== END | disposition home or self-care (01) ==
LOC: RADUSWWP 11:40
PROVIDERS: ATTEND Family Medicine
DX: E04.1 Nontoxic single thyroid nodule (principal); C34.90 Malignant neoplasm of unspecified part of unspecified bronchus or lung; R59.9 Enlarged lymph nodes, unspecified
CPT/HCPCS: 76536

== ENCOUNTER → 2020-01-19 | Outpatient (CLI) | payer OTHER ==
--- NOTE | 2020-01-19 13:19 | MR ---
EXAMINATION TYPE: MR brain wo/w con DATE OF EXAM: 01/19/2020 COMPARISON: Prior MRI brain July 16, 2019 and older studies. HISTORY: C34.2 Malignant neoplasm lung small cell cancer diagnosed 2016 TECHNIQUE: Multiplanar, multisequence images of the brain and brainstem is performed without and with IV contras t, utilizing 10 mL intravenous Gadavist . FINDINGS: Diffusion weighted images demonstrate no evidence of a recent infarct or other diffusion ab normality. There is mild ventricular and sulcal prominence. Scattered areas of T2 hyperintensity in the deep and periventricular white matter are redemonstrated. Midline structures redemonstrate normal morphology. The craniocervical junction appears within jose guadalupe l limits. The dural venous sinuses appear patent. The visualized sinuses are clear and the globes ar e intact. Postcontrast images show no suspicious new enhancing intraparenchymal mass or suspicious pathologic e nhancement. IMPRESSION: No new enhancing masses to suggest metastatic disease to the brain. Mild age-related cere bral atrophy and mild to moderate chronic small vessel ischemic changes redemonstrated. No significan t change from most recent MRI.
== END | disposition home or self-care (01) ==
LOC: RADMRIMAIN 11:31
PROVIDERS: ATTEND Radiology Radiation Oncology
DX: G31.1 Senile degeneration of brain, not elsewhere classified (principal); I67.82 Cerebral ischemia; C34.2 Malignant neoplasm of middle lobe, bronchus or lung; Z92.3 Personal history of irradiation; F17.210 Nicotine dependence, cigarettes, uncomplicated
CPT/HCPCS: 70553; A9585

== ENCOUNTER → 2020-06-07 | Outpatient (CLI) | payer OTHER ==
[2020-06-07 14:01] LABS: Albumin 4.5 g/dL (3.5-5.0); Calcium 9.6 mg/dL (8.4-10.2); Potassium 4.1 mmol/L (3.5-5.1); Total Bilirubin 0.7 mg/dL (0.2-1.3)
--- NOTE | 2020-06-07 18:54 | CT ---
EXAMINATION TYPE: CT chest w con DATE OF EXAM: 06/07/2020 COMPARISON: Prior CT chest 10/13/2019 HISTORY: Follow up for lung cancer, observe for mets. CT DLP: 435.6 mGycm Automated exposure control for dose reduction was used. CONTRAST: CT scan of the chest is performed with IV Contrast, patient injected with 100ml mL of Isovue 300. FINDINGS: Port-A-Cath in the right pectoral region courses via the internal jugular vein into the sup erior vena cava LUNGS: The lungs are stable, there is abnormal soft tissue extending from the right hilum towards the right upper hemithorax, there is associated pleural thickening. Pneumatocele present in the left upp er lobe is stable. There is no pleural effusion or pneumothorax seen. The tracheobronchial tree is patent. MEDIASTINUM: There are no greater than 1 cm hilar or mediastinal lymph nodes. No pericardial effusi on is seen. AORTA: Root of the aorta is aneurysmal at 4.1 to 4.2 cm, ascending aorta measures 3 cm, proximal elba cending aorta 2.5 cm. OTHER: No additional significant abnormality is seen. IMPRESSION: Findings are unchanged compared to prior exam. Root of the aorta is aneurysmal.
== END | disposition home or self-care (01) ==
LOC: RADPROMAIN 13:10
PROVIDERS: ATTEND Internal Medicine Hematology & Oncology
DX: C34.91 Malignant neoplasm of unspecified part of right bronchus or lung (principal)
CPT/HCPCS: 80053; 71260; J1642; Q9967

== ENCOUNTER → 2020-08-01 | Outpatient (CLI) | payer OTHER ==
--- NOTE | 2020-08-01 14:15 | MR ---
EXAMINATION TYPE: MR brain wo/w con DATE OF EXAM: 08/01/2020 COMPARISON: 01/19/2020. HISTORY: 50-year-old male C34.2, F/U NRG protocol, left side weakness and numbness, history of lung c ancer TECHNIQUE: Multiplanar, multisequence images of the brain and brainstem were acquired before and aft er administration of 10 mL IV Gadavist. Diffusion weighted imaging is performed. FINDINGS: No evidence for acute infarction, hemorrhage, mass, mass effect, midline shift, herniation, effacemen t of basal cisterns, or extra-axial fluid collection. Mild generalized supratentorial volume loss. No hydrocephalus. Major intracranial flow voids are intact. T2/FLAIR weighted sequences [id number] periventricular and scattered deep white matter foci in both cerebral hemispheres without significant change. Midline structures demonstrate normal morphology. The craniocervical junction is normal. Post contrast images demonstrate no evidence of pathologic enhancement. Dural venous sinuses are pat ent. Mild mucosal thickening ethmoid air cells and maxillary sinuses. IMPRESSION: 1. Mild generalized atrophy and mild to moderate periventricular and scattered deep white matter ornelas ges of chronic small vessel ischemic disease, unchanged from prior exam. No enhancing intracranial le sions to suggest brain metastases. 2. Mild chronic ethmoid and maxillary sinus disease.
== END | disposition home or self-care (01) ==
LOC: RADMRIMAIN 10:45
PROVIDERS: ATTEND Radiology Radiation Oncology
DX: C34.2 Malignant neoplasm of middle lobe, bronchus or lung (principal); I67.82 Cerebral ischemia; J32.8 Other chronic sinusitis; G31.9 Degenerative disease of nervous system, unspecified
CPT/HCPCS: 70553; A9585

== ENCOUNTER → 2020-10-18 | Outpatient (CLI) | payer OTHER ==
[2020-10-18 11:35] LABS: African American GFR (CKD) >90 (>60 ml/min/1.73 sqM); Blood Urea Nitrogen 14 mg/dL (9-20); Non-African American GFR(CKD) >90 (>60 ml/min/1.73 sqM)
--- NOTE | 2020-10-18 13:07 | CT ---
EXAMINATION TYPE: CT chest w con DATE OF EXAM: 10/18/2020 COMPARISON: Chest CT June 07, 2020 and older CTs HISTORY: Follow up right sided lung cancer CT DLP: 443.4 mGycm. Automated Exposure Control for Dose Reduction was Utilized. TECHNIQUE: CT scan of the thorax is performed following with IV Contrast, patient injected with 100 mL of Isovue 300. FINDINGS: LUNGS: There is right suprahilar triangular shaped consolidation with air bronchograms with superior retraction of the right hilum seen best axial image 19 and coronal image 57 current study not signifi cantly changed from most recent studies. Superior lateral pleural thickening near axial image 15 is r edemonstrated and felt stable. There is persistent right hilar chronic consolidation and/or scarring felt fairly stable inferiorly near axial image 27 current study. No new or enlarging suspicious great er than 4 mm nodules or masses. No pleural effusion or pneumothorax. Small bleb left upper lobe axial image 18 is again seen. MEDIASTINUM: There are no new greater than 1 cm hilar or mediastinal lymph nodes. No cardiomegaly o r pericardial effusion is seen. OTHER: Slight scoliotic curvature with multilevel spurring. IMPRESSION: Overall stable findings, post treatment changes to the right lung is redemonstrated. No s uspicious new mass or adenopathy identified to suggest active neoplastic recurrence.
== END | disposition home or self-care (01) ==
LOC: RADPROMAIN 10:40
PROVIDERS: ATTEND Internal Medicine Hematology & Oncology
DX: C34.91 Malignant neoplasm of unspecified part of right bronchus or lung (principal); Z88.4 Allergy status to anesthetic agent
CPT/HCPCS: 82565; 84520; 36415; 71260; Q9967

== ENCOUNTER → 2021-02-11 | Outpatient (CLI) | payer OTHER ==
--- NOTE | 2021-02-11 12:33 | MR ---
EXAMINATION TYPE: MR brain wo/w con DATE OF EXAM: 02/11/2021 COMPARISON: MR brain 08/01/2020 HISTORY: F/U NRG protocol, lung cancer. TECHNIQUE: Multiplanar, multisequence images of the brain and brainstem is performed without and with IV contras t, utilizing 10 mL intravenous Gadavist . FINDINGS: Diffusion weighted images demonstrate no evidence of a recent infarct or other diffusion ab normality. There is no extra-axial fluid collection or significant change in white matter signal abn ormality. The ventricular system and cisternal spaces are normal in size and appearance. The brain volume is stable. Midline structures demonstrate normal morphology. The craniocervical junction appears within normal limits. Post contrast images demonstrate no abnormal enhancement. The dural venous sinuses appear pa tent. The visualized sinuses are remarkable for mucosal disease in the maxillary sinuses, ethmoid air cells and the globes are intact. IMPRESSION: Essentially stable exam. Nonspecific white matter demyelination. Sinus disease. Cortical atrophy is similar to prior exam.
== END | disposition home or self-care (01) ==
LOC: RADMRIMAIN 10:13
PROVIDERS: ATTEND Radiology Radiation Oncology
DX: Z00.6 Encounter for examination for normal comparison and control in clinical research program (principal); C34.2 Malignant neoplasm of middle lobe, bronchus or lung
CPT/HCPCS: 70553; A9585

== ENCOUNTER → 2021-04-25 | Outpatient (CLI) | payer OTHER ==
[2021-04-25 11:21] LABS: African American GFR (CKD) >90 (>60 ml/min/1.73 sqM); Blood Urea Nitrogen 14 mg/dL (9-20); Non-African American GFR(CKD) >90 (>60 ml/min/1.73 sqM)
--- NOTE | 2021-04-25 12:10 | CT ---
EXAMINATION TYPE: CT chest w con DATE OF EXAM: 04/25/2021 COMPARISON: Chest CT October 18, 2020 and older studies. HISTORY: follow up to right-sided lung CA CT DLP: 702 mGycm. Automated Exposure Control for Dose Reduction was Utilized. TECHNIQUE: CT scan of the thorax is performed following with IV Contrast, patient injected with 100 mL of Isovue 300. FINDINGS: LUNGS: Posttreatment change to the right upper lung with hilar scarlike opacity having central bronch iectasis extending superiorly to the right lung apex where there is pleural thickening is redemonstra annalise axial images 12 through 21 not significantly changed from prior studies. Inferior to this there i s right midlung linear scarring redemonstrated. Right-sided volume loss again seen. Left lung base sh ows mild linear scarring and/or atelectasis extending laterally. No new suspicious greater than 5 mm pulmonary nodules or masses. MEDIASTINUM: Prominent but subcentimeter lymph nodes right hilar region at level of right pulmonary a rtery axial images 21 through 25 not significantly changed from most recent prior studies. No new gre ater than 1 cm mediastinal lymph nodes. No cardiomegaly or pericardial effusion is seen. OTHER: Stable right internal jugular Mediport catheter. IMPRESSION: Stable posttreatment change to the right lung is redemonstrated. No suspicious new or enl arging mass or adenopathy to suggest active neoplastic recurrence.
== END | disposition home or self-care (01) ==
LOC: RADPROMAIN 10:29
PROVIDERS: ATTEND Internal Medicine Hematology & Oncology
DX: C34.91 Malignant neoplasm of unspecified part of right bronchus or lung (principal)
CPT/HCPCS: 82565; 84520; 71260; J1642; Q9967

== ENCOUNTER → 2021-10-31 | Outpatient (CLI) | payer OTHER ==
[2021-10-31 10:39] LABS: ALT 25 U/L (4-49); AST 32 U/L (17-59); African American GFR (CKD) >90 (>60 ml/min/1.73 sqM); Albumin 4.3 g/dL (3.5-5.0); Alkaline Phosphatase 132 U/L (38-126); Anion Gap 7 mmol/L; Blood Urea Nitrogen 11 mg/dL (9-20); Calcium 8.6 mg/dL (8.4-10.2); Carbon Dioxide 25 mmol/L (22-30); Chloride 102 mmol/L (98-107); Glucose 107 mg/dL (74-99); Non-African American GFR(CKD) >90 (>60 ml/min/1.73 sqM); Potassium 3.6 mmol/L (3.5-5.1); Sodium 134 mmol/L (137-145); Total Protein 7.4 g/dL (6.3-8.2)
--- NOTE | 2021-10-31 12:14 | CT ---
EXAMINATION TYPE: CT chest w con CT DLP: 434.7 mGycm, Automated exposure control for dose reduction was used. DATE OF EXAM: 10/31/2021 11:49 AM COMPARISON: CT chest 04/25/2021. CLINICAL INDICATION:Male, 51 years old with history of C34.91 Lung ca; TECHNIQUE: Multiple axial images were obtained through the chest following the administration of 100 cc of Isovue 300. FINDINGS: LUNGS/ PLEURA: Similar posttreatment change to the right upper lung with hilar scarlike opacity havin g central bronchiectasis extending superiorly to the right lung apex. There is associated pleural thi ckening. Inferior to this there is right midlung linear scarring redemonstrated. Right-sided volume l oss again seen. Left lung base shows mild linear scarring and/or atelectasis. No new or enlarging pul monary nodules or masses. No pneumothorax or pleural effusion. AIRWAY: Patent and unremarkable. HEART: Size within normal limits. No pericardial effusion. MEDIASTINUM: No concerning lymphadenopathy. VASCULATURE: No aortic aneurysm. Right chest wall IJ Mediport catheter terminates in the mid SVC. MUSCULOSKELETAL: Degenerative changes of visualized spine. No suspicious osseous lesion. Healing righ t nondisplaced anterior ninth rib fracture with callus formation (series 3, image 62). SOFT TISSUES/LYMPH NODES: Unremarkable. LOWER NECK: No significant findings. UPPER ABDOMEN: No significant findings. IMPRESSION: 1. Stable posttreatment changes to the right lung redemonstrated. No new suspicious mass or adenopath y to suggest active neoplastic recurrence. 2. Healing right anterior ninth rib fracture with callus formation.
== END | disposition home or self-care (01) ==
LOC: RADPROMAIN 10:05
PROVIDERS: ATTEND Internal Medicine Hematology & Oncology
DX: Z03.89 Encounter for observation for other suspected diseases and conditions ruled out (principal); C34.91 Malignant neoplasm of unspecified part of right bronchus or lung
CPT/HCPCS: 80053; 71260; J1642; Q9967

== ENCOUNTER → 2022-01-30 | Outpatient (CLI) | payer OTHER ==
--- NOTE | 2022-01-30 10:39 | MR ---
EXAMINATION TYPE: MR brain wo/w con DATE OF EXAM: 01/30/2022 COMPARISON: 02/11/2021 HISTORY: Follow up post treatment for malignant neoplasm, hx lung cancer. TECHNIQUE: Multiplanar, multisequence images of the brain and brainstem is performed without and with IV contras t, utilizing 10 mL intravenous Gadavist . FINDINGS: Diffusion weighted images demonstrate no evidence of a recent infarct or other diffusion ab normality. There is moderate generalized degenerative change. Diffuse and focal areas of abnormal sig nal in the white matter are nonspecific but most typical remote white matter ischemia. Midline structures demonstrate normal morphology. The craniocervical junction appears within normal limits. Post contrast images demonstrate no abnormal enhancement. The dural venous sinuses appear pa tent. Mild changes of chronic sinusitis and the globes are intact. IMPRESSION: 1. Degenerative and nonspecific white matter change most typical of remote white matter ischemia. 2. No evidence of intracranial metastases.
== END | disposition home or self-care (01) ==
LOC: RADMRIMAIN 08:41
PROVIDERS: ATTEND Radiology Radiation Oncology
DX: Z00.6 Encounter for examination for normal comparison and control in clinical research program (principal); Z08 Encounter for follow-up examination after completed treatment for malignant neoplasm; Z85.118 Personal history of other malignant neoplasm of bronchus and lung; Z92.3 Personal history of irradiation; Z29.8 Encounter for other specified prophylactic measures
CPT/HCPCS: 70553; A9585

== ENCOUNTER 2022-09-28 09:46 | Day surgery (SDC) | payer OTHER ==
[2022-09-26 14:35] VITALS: BMI 32.9
[2022-09-28 10:08] LABS: Glucose,Whole Blood 137 mg/dL (70-110)
[2022-09-28 10:51] VITALS: BP 139/102; PULSE 100; RESP 18
[2022-09-28] MEDS ORDERED: IOPAMIDOL-370 100ML BTL INJ ONE (11:37)
--- NOTE | 2022-09-28 13:06 | IR ---
EXAMINATION TYPE: IR fluoro guided needle place Mediport injection. HISTORY: Nonfunctioning Mediport FINDINGS: Fluoroscopy time: DAP .[id number]. A Mediport catheter is seen overlying the right hemithorax. There is marked looping of the catheter a long the right lung apex. Injection of contrast demonstrates partial occlusion of the catheter with e vidence of a fibrin sheath. Results were conveyed to referring clinician and medially post procedure. IMPRESSION: 1. Findings are compatible with fibrin sheath at the distal margin of the catheter surgical consultat ion recommended.
== END 2022-09-28 12:05 | disposition home or self-care (01) ==
LOC: CATHCVL 09:46
PROVIDERS: ATTEND Radiology Diagnostic Radiology
DX: T82.598A Other mechanical complication of other cardiac and vascular devices and implants, initial encounter (principal); Y82.8 Other medical devices associated with adverse incidents; Z85.118 Personal history of other malignant neoplasm of bronchus and lung; Z92.21 Personal history of antineoplastic chemotherapy; M19.90 Unspecified osteoarthritis, unspecified site; J44.9 Chronic obstructive pulmonary disease, unspecified; F17.210 Nicotine dependence, cigarettes, uncomplicated; E11.65 Type 2 diabetes mellitus with hyperglycemia; D64.9 Anemia, unspecified; F10.20 Alcohol dependence, uncomplicated; Z79.1 Long term (current) use of non-steroidal anti-inflammatories (NSAID); Z79.899 Other long term (current) drug therapy; Z88.4 Allergy status to anesthetic agent; Z79.4 Long term (current) use of insulin
CPT/HCPCS: 36598; Q9967

== ENCOUNTER 2022-12-14 07:53 | Day surgery (SDC) | payer OTHER ==
[2022-12-07 14:58] VITALS: BMI 32.3
[~2022-12-14 07:53] MED LIST changes: +ACETAMINOPHEN TAB 500 MG TAB PO PRN; -ALTEPLASE 2 MG VIAL (CATHFLO) IV STA; +HEPARIN SODIUM,PORCINE/PF 5,000 UNIT/0.5 ML SYRINGE SQ PRN
[2022-12-14 08:24] VITALS: TEMP 97.5
[2022-12-14] MEDS ORDERED: LIDOCAINE 1% (10MG/ML) FOR IV START INTRADERMA PRN (08:24)
[2022-12-14] MEDS ORDERED: fentaNYL (PF) 50 MCG/ML 2 ML AMP IV PRN (08:24)
[2022-12-14] MEDS ORDERED: LACTATED RINGERS 1,000 ML IV SCH (08:24)
[2022-12-14] MEDS ORDERED: ONDANSETRON 4 MG/2 ML VIAL IVP ONE (08:24)
[2022-12-14] MEDS ORDERED: DEXAMETHASONE SOD PHOSPHATE 4 MG/ML 1 ML VIAL IV ONE (08:40)
--- NOTE | 2022-12-14 08:54 | P.GSHP ---
History of Present Illness H&P Date: 12/14/22 Chief Complaint: Lung cancer 52-year-old male had right-sided Port-A-Cath placed about 4-5 years ago for lung cancer. No longer using the catheter. Here today to have catheter removed. Past Medical History Past Medical History: Cancer, COPD, Diabetes Mellitus, Hypertension, Osteoarthritis (OA), Pneumonia Additional Past Medical History / Comment(s): SMALL CELL LUNG CANCER , history of diabetes-states does not have diabetes anymore History of Any Multi-Drug Resistant Organisms: None Reported Past Surgical History: Joint Replacement Additional Past Surgical History / Comment(s): emily. hip replacement , bronchosocopy w/bx, PORT FOR CHEMO Past Anesthesia/Blood Transfusion Reactions: Postoperative Nausea & Vomiting (PONV) Past Psychological History: Depression Additional Psychological History / Comment(s): . Smoking Status: Current every day smoker Past Alcohol Use History: Rare Additional Past Alcohol Use History / Comment(s): started smoking age 9 worked up to 1.5 ppd but has cut down-currently smokes 6-7 cigs per day. Past Drug Use History: None Reported - Past Family History Mother Family Medical History: Cancer Additional Family Medical History / Comment(s): colon cancer Father Family Medical History: No Reported History Medications and Allergies Home Medications Medication Instructions Recorded Confirmed Type Atorvastatin [Lipitor] 20 mg PO 1300 09/26/22 12/07/22 History HYDROcodone/APAP 5-325MG [[place] 1 tab PO Q6HR PRN 09/26/22 12/07/22 History 5-325] Losartan [Cozaar] 25 mg PO 1600 09/26/22 12/07/22 History Allergies Allergy/AdvReac Type Severity Reaction Status Date / Time mushroom AdvReac Nausea & Verified 12/14/22 08:18 Vomiting Surgical - Exam Vital Signs Temp Pulse Resp BP Pulse Ox 97.5 F L 81 16 133/104 97 12/14/22 08:23 12/14/22 08:23 12/14/22 08:23 12/14/22 08:23 12/14/22 08:23 Physical exam: General: Well-developed, well-nourished HEENT: Normocephalic, sclerae nonicteric Abdomen: Nontender, nondistended Extremities: No edema Neuro: Alert and oriented Right-sided Port-A-Cath Assessment and Plan (1) Small cell lung carcinoma Narrative/Plan: Will proceed with Port-A-Cath removal at this time. Current Visit: No Status: Acute Priority: High Code(s): C34.90 - MALIGNANT NEOPLASM OF UNSP PART OF UNSP BRONCHUS OR LUNG SNOMED Code(s): 037361441
[2022-12-14] MEDS ORDERED: LIDOCAINE 1% INJ 10MG/ML (20 ML MDV) SQ ONE ×3 (08:56→09:17)
[2022-12-14] MEDS ORDERED: MIDAZOLAM 2 MG/2 ML VIAL ONE (09:02)
[2022-12-14] MEDS ORDERED: PROPOFOL 10 MG/ML 20 ML VIAL IV ONE (09:02)
[2022-12-14] MEDS ORDERED: fentaNYL (PF) 50 MCG/ML 2 ML AMP ONE (09:02)
[2022-12-14] MEDS ORDERED: NALOXONE 0.4 MG/ML 1 ML VIAL IV PRN (09:34)
--- NOTE | 2022-12-14 09:35 | P.OP ---
Date of Procedure: 12/14/22 Procedure(s) Performed: PREOPERATIVE DIAGNOSIS: Lung cancer POSTOPERATIVE DIAGNOSIS: Same PROCEDURE: Port-A-Cath removal SURGEON: Juancho EBL: Minimal ANESTHESIA: Sedation COMPLICATIONS: None OPERATIVE PROCEDURE: Patient was placed in the supine position. The patient was sedated per anesthesia that time. The chest was prepped and draped in the usual sterile fashion. The skin was localized with Marcaine solution. The previous incision was re-incised using a scalpel. The port was easily excised using a ccommodation of blunt dissection sharp dissection and electrocautery. The subcutaneous tissues were reapproximated using 3-0 Vicryl sutures. The skin was reapproximated using 4-0 Monocryl sutures. Skin glue was then applied. DISPOSITION: Stable to recovery room
[2022-12-14 09:39] VITALS: RESP 18
[2022-12-14 10:01] VITALS: BP 128/73; PULSE 88
== END 2022-12-14 10:05 | disposition home or self-care (01) ==
LOC: OR 07:53
PROVIDERS: ATTEND Surgery
DX: C34.91 Malignant neoplasm of unspecified part of right bronchus or lung (principal); J44.9 Chronic obstructive pulmonary disease, unspecified; E11.9 Type 2 diabetes mellitus without complications; I10 Essential (primary) hypertension; M19.90 Unspecified osteoarthritis, unspecified site; F32.A Depression, unspecified; F17.210 Nicotine dependence, cigarettes, uncomplicated; Z80.0 Family history of malignant neoplasm of digestive organs; Z79.899 Other long term (current) drug therapy; Z79.811 Long term (current) use of aromatase inhibitors; Z96.643 Presence of artificial hip joint, bilateral
CPT/HCPCS: 36590; J2250; J1100; J0690; J2405; J2001; J3010; J2704; J1644

== ENCOUNTER → 2023-01-31 | Outpatient (CLI) | payer OTHER ==
--- NOTE | 2023-01-31 13:14 | MR ---
EXAMINATION TYPE: MR brain wo/w con DATE OF EXAM: 01/31/2023 12:43 PM CLINICAL INDICATION:Male, 53 years old with history of C34.2 LUNG CANCER; PHH, Hx lung cancer x7yrs, follow-up after completion of treatment for neoplasm COMPARISON: 01/30/2022, 02/11/2021 TECHNIQUE: Multi planar, multi sequence imaging was performed through the brain including: T1, T2, In version recovery, susceptibility weighted imaging and gradient echo imaging and Diffusion weighted im aging. The patient was then given intravenous contrast and multi planar, T1 fat-saturation images wer e obtained. IV Contrast: 10 cc Gadavist FINDINGS: Mild cerebral atrophy with proportional dilation of ventricular system. Diffusion-weighted imaging s hows no evidence of restricted diffusion to suggest acute/subacute infarct. Intracranial arterial luca w voids are maintained. Midline structures show no abnormality. Scattered foci of high T2 signal inte nsity are seen within the periventricular white matter. The susceptibility weighted images do not rev eal any evidence for micro-hemorrhage. Linear blush of postcontrast enhancement in the left cerebella r hemisphere without finding on any other sequence. This finding may been present on 02/11/2021 stud y series 704 image 17 on today's exam. Additional postcontrast imaging findings. The bone marrow signal is within normal limits. Paranasal sinuses and mastoid air cells: Mild scattered paranasal sinus disease. Visualized orbits: Orbital contents are intact. IMPRESSION: 1. No evidence of acute/subacute infarct. 2. Linear blush of postcontrast enhancement in the left cerebellar hemisphere without finding on any other sequence. This finding may been present on 02/11/2021 study series 704 image 17 on today's exa m. Short-term follow-up attention left cerebellar hemisphere recommended in 3-6 months. Additional po stcontrast enhancement. 3. Nonspecific white matter changes, likely related to small vessel ischemic disease
== END | disposition home or self-care (01) ==
LOC: RADMRIMAIN 11:31
PROVIDERS: ATTEND Radiology Radiation Oncology
DX: C34.2 Malignant neoplasm of middle lobe, bronchus or lung (principal); G93.89 Other specified disorders of brain; R90.82 White matter disease, unspecified; Z85.118 Personal history of other malignant neoplasm of bronchus and lung; Z85.858 Personal history of malignant neoplasm of other endocrine glands; Z08 Encounter for follow-up examination after completed treatment for malignant neoplasm; Z92.3 Personal history of irradiation; Z00.6 Encounter for examination for normal comparison and control in clinical research program
CPT/HCPCS: 70553; A9585

== ENCOUNTER → 2023-10-29 | Outpatient (CLI) | payer OTHER ==
--- NOTE | 2023-10-29 11:09 | CT ---
EXAMINATION TYPE: CT chest wo con CT DLP: 518.0 mGycm, Automated exposure control for dose reduction was used. DATE OF EXAM: 10/29/2023 11:03 AM COMPARISON: CT chest 11/05/2022, 10/31/2021, 04/25/2021 CLINICAL INDICATION:Male, 53 years old with history of C34.91 LUNG CANCER; PHH, f/u lung cancer TECHNIQUE: Multiple axial images were obtained through the chest without IV contrast. Lack of IV or o ral contrast limits evaluation of solid and hollow organ viscera. . Coronal and sagittal reformats re viewed. FINDINGS: LUNGS/ PLEURA: Similar posttreatment change to the right upper lung with hilar scarlike opacity and c orresponding central bronchiectasis extending superiorly to the right lung apex. There is associated pleural thickening. Inferior to this there is right midlung linear scarring redemonstrated. Right-esteban ed volume loss again seen. Left lung base shows mild linear scarring. No new or enlarging pulmonary n odules or masses. No pneumothorax or pleural effusion. AIRWAY: Patent and unremarkable. HEART: Size within normal limits. No pericardial effusion. MEDIASTINUM: No concerning lymphadenopathy. VASCULATURE: No aortic aneurysm. Interval removal of Mediport catheter. MUSCULOSKELETAL: Degenerative changes of visualized spine. No suspicious osseous lesion. No acute oss eous abnormality. SOFT TISSUES/LYMPH NODES: Unremarkable. LOWER NECK: No significant findings. UPPER ABDOMEN: Hyperdense material layering within gallbladder consistent with gallstones. IMPRESSION: Stable posttreatment changes to the right lung redemonstrated. No new suspicious mass or adenopathy t o suggest active neoplastic recurrence.
== END | disposition home or self-care (01) ==
LOC: RADCTMAIN 10:34
PROVIDERS: ATTEND Internal Medicine Hematology & Oncology
DX: C34.91 Malignant neoplasm of unspecified part of right bronchus or lung (principal); D45 Polycythemia vera; E83.19 Other disorders of iron metabolism; M12.9 Arthropathy, unspecified; Z71.3 Dietary counseling and surveillance
CPT/HCPCS: 71250

== ENCOUNTER → 2024-02-19 | Outpatient (CLI) | payer OTHER ==
--- NOTE | 2024-02-19 15:51 | MR ---
EXAMINATION TYPE: MR brain wo/w con DATE OF EXAM: 02/19/2024 3:43 PM COMPARISON: 01/31/2023 CLINICAL INDICATION: Male, 54 years old with history of Z08 ENCNTR FOR FOLLOW-UP EXAM AFTER TRTMT FOR MYRNA; PHH, Lung cancer. TECHNIQUE: Multi planar, multi sequence imaging was performed through the brain including: T1, T2, In version recovery, susceptibility weighted imaging and gradient echo imaging and Diffusion weighted im aging. The patient was then given intravenous contrast and multi planar, T1 fat-saturation images wer e obtained. IV Contrast: 10 mL Gadavist FINDINGS: The ingram-white junctions, ventricular system, basal cisterns appear unremarkable. Diffusion-weighted imaging shows no evidence of restricted diffusion to suggest acute/subacute infarct. Intracranial ar terial flow voids are maintained. Midline structures show no abnormality. Scattered foci of high T2 s ignal intensity are seen within the periventricular white matter. The susceptibility weighted images scattered susceptibility foci. Are seen throughout the brain bilaterally including some areas within the cerebellum.. After administration of gadolinium, no abnormal enhancement is seen. Left developmental venous anomaly within the cerebellum this correlates with prior finding on 023 no suspicious enhancement identified. The bone marrow signal is within normal limits. Paranasal sinuses and mastoid air cells: Mild scattered paranasal sinus disease. Visualized orbits: Orbital contents are intact. IMPRESSION: 1. Stable area of enhancement within the cerebellum thought to represent developmental venous anomaly . No evidence of intracranial mass, acute/subacute infarct, or abnormal enhancement. 2. Nonspecific white matter changes, likely related to small vessel ischemic disease. 3. Scattered susceptibility foci throughout the brain correlate for amyloid angiopathy. [facility], , 02/19/2024 3:49 PM
== END | disposition home or self-care (01) ==
LOC: RADMRIMAIN 14:52
PROVIDERS: ATTEND Radiology Radiation Oncology
DX: Z08 Encounter for follow-up examination after completed treatment for malignant neoplasm (principal); G93.89 Other specified disorders of brain; R90.82 White matter disease, unspecified; Z85.858 Personal history of malignant neoplasm of other endocrine glands; Z85.118 Personal history of other malignant neoplasm of bronchus and lung; Z92.3 Personal history of irradiation; Z29.3 Encounter for prophylactic fluoride administration
CPT/HCPCS: 70553; A9585